=== PATIENT | male | born 1955 | race Caucasian/White ===

== ENCOUNTER 2017-04-20 05:30 | Emergency (ER) | payer OTHER ==
[~2017-04-20] VITALS: Ht 172.7 cm; Wt 90.7 kg
[2017-04-20 06:02] LABS: BASO % 0 % (0-3); EOS % 1 % (0-3); HEMATOCRIT 43.8 % (39.0-53.0); HEMOGLOBIN 14.4 g/dL (13.0-17.5); LYMPH # 0.9 x10^3/uL (1.0-4.8); LYMPH % 12 % (24-48); MEAN CORPUSCULAR HEMOGLOBIN 29 pg (25-35); MEAN CORPUSCULAR HGB CONC 33 g/dL (31-37); MEAN CORPUSCULAR VOLUME 90 fL (79-100); MONO % 11 % (0-9); NEUT % 76 % (31-73); PLATELET COUNT 184 x10^3/uL (140-400); RED BLOOD COUNT 4.88 x10^6/uL (4.30-5.70); RED CELL DISTRIBUTION WIDTH 14.1 % (11.5-14.5); WHITE BLOOD COUNT 7.6 x10^3/uL (4.0-11.0)
[2017-04-20 06:12] LABS: BILIRUBIN,URINE NEGATIVE (NEG); GLUCOSE,URINE NEGATIVE (NEG); NITRITE,URINE NEGATIVE (NEG); PROTEIN,URINE NEGATIVE (NEG-TRACE); UROBILINOGEN,URINE 0.2 mg/dL (0.2 mg/dL)
[2017-04-20 06:13] LABS: CALCIUM 8.7 mg/dL (8.5-10.1); CREATININE 1.1 mg/dL (0.7-1.3); GFR 68.1; POTASSIUM 3.8 mmol/L (3.5-5.1)
--- NOTE | 2017-04-20 06:25 | PHYS DOC ---
Past Medical History Past Medical History: Depression, High Cholesterol, Hypertension, Kidney Stone Past Surgical History: Appendectomy, Other Additional Past Surgical Histo: STENT IN KIDNEY, BIALT CATARACT Alcohol Use: Rarely Drug Use: None Adult General Chief Complaint Chief Complaint: ABDOMINAL PAIN HPI HPI Patient is a 62 year old male who presents with right flank and abdominal pain. He's had this pain intermittently over the last month, today's episode started at 1 AM and did not resolve in 2 hours like previous pain and. Patient feels similar to when he had a kidney stone 10 years ago that required lithotripsy and multiple surgeries due to the size. That time he was told he had additional stones in his kidney that they did not think would pass. He denies any vomiting but reports nausea when the pain occurs. He did not attempt any pain relieving medication. At this time his pain is well controlled as it resolved while in the ER. Review of Systems Review of Systems Constitutional: Denies fever or chills [] Eyes: Denies eye pain [] HENT: Denies nasal congestion or sore throat [] Respiratory: Denies cough or shortness of breath [] Cardiovascular: Denies chest pain GI: Per history of present illness : Denies dysuria or hematuria [] Musculoskeletal: Denies back pain Integument: Denies rash Neurologic: Denies headache, focal weakness or sensory changes [] Current Medications Current Medications Current Medications Medications (Trade) Dose Ordered Sig/Sarkis Start Time Stop Time Status Last Admin Dose Admin Sodium Chloride 1,000 ml @ 1,000 mls/hr 1X ONCE 04/20/17 06:30 04/20/17 07:29 DC 04/20/17 05:50 1,000 MLS/HR Allergies Allergies Allergies Coded Allergies Type Severity Reaction Last Updated Verified Penicillins Allergy Intermediate 04/20/17 Yes Physical Exam Physical Exam Constitutional: Well developed, well nourished HENT: Normocephalic, atraumatic, bilateral external ears normal, oropharynx moist Eyes: PERRLA, EOMI, conjunctiva normal, no discharge. Neck: Normal range of motion, supple, no stridor. Cardiovascular:Heart rate regular with regular rhythm Lungs & Thorax: Bilateral breath sounds clear to auscultation, no wheeze, crackles or rhonchi appreciated Abdomen: Soft, nontender, nondistended, no guarding, no peritoneal signs Skin: Warm, dry Back: No tenderness to palpation or percussion Extremities: No tenderness, no cyanosis, no edema. [] Neurologic: Alert and oriented X 3, normal motor function, normal sensory function, no focal deficits noted. [] Current Patient Data Vital Signs Vital Signs Date Time Temp Pulse Resp B/P (MAP) Pulse Ox O2 Delivery O2 Flow Rate FiO2 04/20/17 07:28 75 19 153/82 (105) 95 Room Air 04/20/17 05:53 98.9 98.9 Lab Values Laboratory Tests Test 04/20/17 05:33 04/20/17 05:48 Urine Collection Type Unknown Urine Color Yellow Urine Clarity Clear Urine pH 6.0 Urine Specific [place] 1.015 Urine Protein Negative mg/dL (NEG-TRACE) Urine Glucose (UA) Negative mg/dL (NEG) Urine Ketones (Stick) Negative mg/dL (NEG) Urine Blood Large (NEG) Urine Nitrite Negative (NEG) Urine Bilirubin Negative (NEG) Urine Urobilinogen Dipstick 0.2 mg/dL (0.2 mg/dL) Urine Leukocyte Esterase Negative (NEG) Urine RBC 20-40 /HPF (0-2) Urine WBC Occ /HPF (0-4) Urine Bacteria 0 /HPF (0-FEW) Urine Hyaline Casts Few /HPF Urine Mucus Marked /LPF White Blood Count 7.6 x10^3/uL (4.0-11.0) Red Blood Count 4.88 x10^6/uL (4.30-5.70) Hemoglobin 14.4 g/dL (13.0-17.5) Hematocrit 43.8 % (39.0-53.0) Mean Corpuscular Volume 90 fL (79-100) Mean Corpuscular Hemoglobin 29 pg (25-35) Mean Corpuscular Hemoglobin Concent 33 g/dL (31-37) Red Cell Distribution Width 14.1 % (11.5-14.5) Platelet Count 184 x10^3/uL (140-400) Neutrophils (%) (Auto) 76 % (31-73) H Lymphocytes (%) (Auto) 12 % (24-48) L Monocytes (%) (Auto) 11 % (0-9) H Eosinophils (%) (Auto) 1 % (0-3) Basophils (%) (Auto) 0 % (0-3) Neutrophils # (Auto) 5.7 x10^3uL (1.8-7.7) Lymphocytes # (Auto) 0.9 x10^3/uL (1.0-4.8) L Monocytes # (Auto) 0.8 x10^3/uL (0.0-1.1) Eosinophils # (Auto) 0.1 x10^3/uL (0.0-0.7) Basophils # (Auto) 0.0 x10^3/uL (0.0-0.2) Sodium Level 140 mmol/L (136-145) Potassium Level 3.8 mmol/L (3.5-5.1) Chloride Level 104 mmol/L (98-107) Carbon Dioxide Level 29 mmol/L (21-32) Anion Gap 7 (6-14) Blood Urea Nitrogen 16 mg/dL (8-26) Creatinine 1.1 mg/dL (0.7-1.3) Estimated GFR (Cockcroft-Gault) 68.1 Glucose Level 117 mg/dL (70-99) H Calcium Level 8.7 mg/dL (8.5-10.1) Laboratory Tests 04/20/17 05:48 Laboratory Tests 04/20/17 05:48 EKG EKG [] Radiology/Procedures Radiology/Procedures CT abdomen and pelvis: IMPRESSION: 1. Obstructing calculus in the mid right ureter. 2. Small right intrarenal calculus. 3. Possible tiny gallbladder calculi. 4. Probable small hepatic cysts. 5. Mild prostatic enlargement. Course & Med Decision Making Course & Med Decision Making Pertinent Labs and Imaging studies reviewed. (See chart for details) Patient received IV fluids. He was not in pain at the time of my evaluation so pain medication not indicated. Due to his ongoing intermittent pain, CT was performed. Pain remained well controlled. I reviewed CT and discussed with urologist, Dr. Jay Merida, at [facility]. He said pt can dc with pain meds, flomax, clinic number and schedule outpt follow-up. Strict return precautions given. Dragon Disclaimer Dragon Disclaimer This electronic medical record was generated, in whole or in part, using a voice recognition dictation system. Departure Departure Impression: Primary Impression: Kidney stone on right side Disposition: HOME, SELF-CARE Condition: IMPROVED Referrals: WESLEY LI MD (PCP) Patient Instructions: Kidney Stones Additional Instructions: Please call Dr. Jay Merida's office at [phone] Explain you have a 6mm obstructing stone and that you need close follow-up. Return if you have worsening symptoms. We have "clouded" the CT scan to [facility] for the urologists review. Do not drive or operate machinery if you have taken the pain medication. Scripts Tamsulosin Hcl (FLOMAX) 0.4 Mg Cap.er.24h 0.4 MG PO DAILY, #30 TAB Prov: ROYAL CRAIG MD 04/20/17 Oxycodone/Apap 5-325 (PERCOCET 5-325 MG TABLET) 1 Each Tablet 1-2 TAB PO Q4-6HRS Y for PAIN, #20 TAB Prov: ROYAL CRAIG MD 04/20/17 ROYAL CRAIG MD Apr 20, 2017 06:25
[2017-04-20 06:29] LABS: BACTERIA,URINE 0 /HPF (0-FEW); RBC,URINE 20-40 /HPF (0-2); WBC,URINE OCC /HPF (0-4)
[2017-04-20] MEDS ORDERED: IV NORMAL SALINE 1000ML BAG 1,000 ML IV ONE (06:30)
[2017-04-20 07:28] VITALS: BP 153/82
--- NOTE | 2017-04-20 07:29 | RAD ---
CT of the abdomen and pelvis without contrast, 04/20/2017: History: Pain, previous kidney stone Noncontrast scans were obtained utilizing the renal stone protocol. On the right there is a single small intrarenal calculus. There is streaky right perinephric edema. The right renal collecting system and proximal right ureter are mildly dilated. There is a 6 mm calculus in the proximal to mid right ureter at the L4-5 level. The right ureter distal to this level is not dilated. The partially filled urinary bladder is unremarkable. No left renal calculus is seen. There is minimal streaky increased density in the left perinephric fat compatible with scarring or nonspecific edema. The left renal collecting system and ureter are not dilated. No left ureteral calculus is present. There are 2 small low-density lesions in the liver, the largest of these lies posteriorly in the right lobe. It is best defined on the coronal images and demonstrates a low internal CT number compatible with a cyst. A smaller lesion in the left lobe is too small to definitively characterize, but is likely a cyst. There is a tiny amount of radiopaque material within the dependent aspect of the gallbladder neck compatible with tiny calculi or sludge. The gallbladder shows no evidence of inflammation. The pancreas is unremarkable. The spleen is of normal size. There is moderate aortoiliac calcific plaquing. No abdominal or pelvic adenopathy is seen. The prostate gland is slightly enlarged measuring 5.2 cm in width. The bowel loops are not dilated. Surgical clips are present in the pericecal region suggesting a previous appendectomy. No free fluid or free air is evident in the abdomen or pelvis. IMPRESSION: 1. Obstructing calculus in the mid right ureter. 2. Small right intrarenal calculus. 3. Possible tiny gallbladder calculi. 4. Probable small hepatic cysts. 5. Mild prostatic enlargement. PQRS Compliance Statement: One or more of the following individualized dose reduction techniques were utilized for this examination: 1. Automated exposure control 2. Adjustment of the mA and/or kV according to patient size 3. Use of iterative reconstruction technique
[2017-04-20] MEDS ORDERED: OXYC-323 PO (08:25)
[2017-04-20] MEDS ORDERED: TAMS0.4C97 PO (08:25)
== END 2017-04-20 08:43 | disposition home or self-care (01) ==
LOC: ER 05:30
DX: N20.0 Calculus of kidney (principal); E78.00 Pure hypercholesterolemia, unspecified; I10 Essential (primary) hypertension; Z88.0 Allergy status to penicillin; Z87.442 Personal history of urinary calculi
CPT/HCPCS: 36415; 74176; 80048; 81001; 85025; 96360; 99285; J7030

== ENCOUNTER 2019-09-29 13:27 | Inpatient (IN) | payer OTHER ==
[~2019-09-29] VITALS: Ht 172.7 cm; Wt 87.5 kg
[~2019-09-29 13:27] MED LIST: OXYC1TAB15 PO; TAMS0.4C97 PO
--- NOTE | 2019-09-29 15:10 | PHYS DOC ---
Past Medical History Past Medical History: Depression, High Cholesterol, Hypertension, Kidney Stone Past Surgical History: Appendectomy, Other Additional Past Surgical Histo: STENT IN KIDNEY, BIALT CATARACT Smoking Status: Never Smoker Alcohol Use: Rarely Drug Use: None Adult General Chief Complaint Chief Complaint: CHEST PAIN [facility] HPI Patient is a 64 year old male who presents with midsternal chest pain that started at 930 this morning. The patient also states that he has been having bilateral blurry vision in his eyes. At baseline he says he is had clots in his eyes before and has part of his vision obscured. The patient's states that she feels that he is a little slower to respond and speak the normal is having difficulty getting his words out. The patient states that nothing makes the chest pain better or worse. 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 He rates his pain is 1 out of 10 in severity. Review of Systems Review of Systems Constitutional: Denies fever or chills [] Eyes: Reports change in visual acuity, denies redness, or eye pain [] HENT: Denies nasal congestion or sore throat [] Respiratory: Denies cough or shortness of breath [] Cardiovascular: No additional information not addressed in HPI [] GI: Denies abdominal pain, nausea, vomiting, bloody stools or diarrhea [] : Denies dysuria or hematuria [] Musculoskeletal: Denies back pain or joint pain [] Integument: Denies rash or skin lesions [] Neurologic: Denies headache, focal weakness or sensory changes [] Endocrine: Denies polyuria or polydipsia [] Complete systems were reviewed and found to be within normal limits, except as documented in this note. Current Medications Current Medications Current Medications Medications (Trade) Dose Ordered Sig/Sarkis Start Time Stop Time Status Last Admin Dose Admin Aspirin (Children'S Aspirin) 324 mg 1X ONCE 09/29/19 15:15 09/29/19 15:16 DC 09/29/19 15:39 324 MG Info (CONTRAST GIVEN -- Rx MONITORING) 1 each PRN DAILY PRN 09/29/19 15:15 10/01/19 15:14 Iohexol (Omnipaque 350 Mg/ml) 75 ml 1X ONCE 09/29/19 15:15 09/29/19 15:16 DC 09/29/19 15:35 75 ML Sodium Chloride 1,000 ml @ 1,000 mls/hr 1X ONCE 09/29/19 15:15 09/29/19 16:14 DC 09/29/19 15:40 1,000 MLS/HR Allergies Allergies Allergies Coded Allergies Type Severity Reaction Last Updated Verified Penicillins Allergy Intermediate 04/20/17 Yes Physical Exam Physical Exam Constitutional: Well developed, well nourished, no acute distress, non-toxic appearance. [] HENT: Normocephalic, atraumatic, bilateral external ears normal, oropharynx mar[address] st, no oral exudates, nose normal. [] Eyes: PERRLA, EOMI, conjunctiva normal, no discharge. [] Neck: Normal range of motion, no tenderness, supple, no stridor. [] Cardiovascular:Heart rate regular rhythm, no murmur [] Lungs & Thorax: Bilateral breath sounds clear to auscultation [] Abdomen: Bowel sounds normal, soft, no tenderness, no masses, no pulsatile masses. [] Skin: Warm, dry, no erythema, no rash. [] Back: No tenderness, no CVA tenderness. [] Extremities: No tenderness, no cyanosis, no clubbing, ROM intact, no edema. [] Neurologic: Alert and oriented X 3, normal motor function, normal sensory function, no focal deficits noted. [] Psychologic: Affect normal, judgement normal, mood normal. [] Current Patient Data Vital Signs Vital Signs Date Time Temp Pulse Resp B/P (MAP) Pulse Ox O2 Delivery O2 Flow Rate FiO2 09/29/19 14:10 98.0 88 18 156/108 (124) 98 Room Air 98.0 Lab Values Laboratory Tests Test 09/29/19 15:10 09/29/19 16:30 White Blood Count 5.5 x10^3/uL (4.0-11.0) Red Blood Count 5.19 x10^6/uL (4.30-5.70) Hemoglobin 15.2 g/dL (13.0-17.5) Hematocrit 44.4 % (39.0-53.0) Mean Corpuscular Volume 86 fL (79-100) Mean Corpuscular Hemoglobin 29 pg (25-35) Mean Corpuscular Hemoglobin Concent 34 g/dL (31-37) Red Cell Distribution Width 14.8 % (11.5-14.5) H Platelet Count 220 x10^3/uL (140-400) Neutrophils (%) (Auto) 59 % (31-73) Lymphocytes (%) (Auto) 30 % (24-48) Monocytes (%) (Auto) 9 % (0-9) Eosinophils (%) (Auto) 1 % (0-3) Basophils (%) (Auto) 1 % (0-3) Neutrophils # (Auto) 3.3 x10^3/uL (1.8-7.7) Lymphocytes # (Auto) 1.7 x10^3/uL (1.0-4.8) Monocytes # (Auto) 0.5 x10^3/uL (0.0-1.1) Eosinophils # (Auto) 0.1 x10^3/uL (0.0-0.7) Basophils # (Auto) 0.0 x10^3/uL (0.0-0.2) Prothrombin Time 12.7 SEC (11.7-14.0) Prothrombin Time INR 1.0 (0.8-1.1) Activated Partial Thromboplast Time 32 SEC (24-38) Sodium Level 138 mmol/L (136-145) Potassium Level 4.0 mmol/L (3.5-5.1) Chloride Level 101 mmol/L (98-107) Carbon Dioxide Level 30 mmol/L (21-32) Anion Gap 7 (6-14) Blood Urea Nitrogen 12 mg/dL (8-26) Creatinine 1.0 mg/dL (0.7-1.3) Estimated GFR (Cockcroft-Gault) 75.5 BUN/Creatinine Ratio 12 (6-20) Glucose Level 95 mg/dL (70-99) Calcium Level 8.8 mg/dL (8.5-10.1) Total Bilirubin 0.5 mg/dL (0.2-1.0) Aspartate Amino Transferase (AST) 21 U/L (15-37) Alanine Aminotransferase (ALT) 33 U/L (16-63) Alkaline Phosphatase 50 U/L (46-116) Troponin I Quantitative < 0.017 ng/mL (0.000-0.055) Total Protein 7.7 g/dL (6.4-8.2) Albumin 3.9 g/dL (3.4-5.0) Albumin/Globulin Ratio 1.0 (1.0-1.7) Ethyl Alcohol Level < 10 mg/dL (0-10) Urine Collection Type Unknown Urine Color Yellow Urine Clarity Clear Urine pH 8.0 (<5.0-8.0) Urine Specific [place] >=1.030 (1.000-1.030) Urine Protein Negative mg/dL (NEG-TRACE) Urine Glucose (UA) Negative mg/dL (NEG) Urine Ketones (Stick) Negative mg/dL (NEG) Urine Blood Negative (NEG) Urine Nitrite Negative (NEG) Urine Bilirubin Negative (NEG) Urine Urobilinogen Dipstick 0.2 mg/dL (0.2 mg/dL) Urine Leukocyte Esterase Negative (NEG) Urine RBC 0 /HPF (0-2) Urine WBC Rare /HPF (0-4) Urine Squamous Epithelial Cells Few /LPF Urine Bacteria Few /HPF (0-FEW) Urine Opiates Screen Neg (NEG) Urine Methadone Screen Neg (NEG) Urine Barbiturates Neg (NEG) Urine Phencyclidine Screen Neg (NEG) Urine Amphetamine/Methamphetamine Pos (NEG) Urine Benzodiazepines Screen Neg (NEG) Urine Cocaine Screen Neg (NEG) Urine Cannabinoids Screen Pos (NEG) Urine Ethyl Alcohol Neg (NEG) Laboratory Tests 09/29/19 15:10 Laboratory Tests 09/29/19 15:10 EKG EKG [] Radiology/Procedures Radiology/Procedures [id number] [address] [id number] IMAGING REPORT Signed PATIENT: HANK EVANS RACCOUNT: [id number] : 1955 LOCATION: ER AGE: 64 SEX: M EXAM STATUS: REG ER ORD. PHYSICIAN: CHARIS ZIMMER APRN REASON: cp, blurry vision, dysarthria PROCEDURE: CT ANGIOGRAPHY HEAD AND NECK PQRS Compliance Statement: One or more of the following individualized dose reduction techniques were utilized for this examination: 1. Automated exposure control 2. Adjustment of the mA and/or kV according to patient size 3. Use of iterative reconstruction technique CT ANGIOGRAPHY HEAD AND NECK 09/29/2019 3:02 PM INDICATION: Chest pain, blurry vision and dysarthria COMPARISON: CT head 09/29/2019 TECHNIQUE: Multiple axial CT images of the head and neck were obtained after the intravenous administration of nonionic contrast. Coronal and sagittal reformats are provided. Maximum intensity projection images are provided. Stenosis calculations for CT, MR, and conventional angiography are based upon measurements of the distal ICA diameter in accordance with the NASCET methodology. Stenosis calculations for carotid ultrasound studies are derived from validated velocity criteria which are known to correlate with the NASCET methodology. FINDINGS: Ventricles, sulci and basal cisterns are normal in appearance. Velasco-white matter differentiation is preserved. There is no mass, mass effect or midline shift. Posterior fossa is normal in appearance. Sella and suprasellar cistern appear normal. Orbits are normal in appearance with exception of bilateral lens replacement. Scalp and calvaria appear intact. Paranasal sinuses are well aerated. Mastoid air cells are well aerated. Visualized portions of lungs are clear. There is a 6 mm calcified granuloma in the right upper lobe. Thyroid gland is normal in appearance. Neck soft tissues are normal in appearance. No pathologically enlarged cervical lymphadenopathy. Pharynx and larynx appear intact. There is minimal anterolisthesis of C4 on C5 and minimal retrolisthesis of C5 on C6. Vascular findings: There is a normal three-vessel aortic arch. Origins of the brachiocephalic vessels are widely patent. Right common carotid artery is normal in course and caliber. Minor calcified plaque is noted at the right carotid bifurcation. No significant stenosis of the right cervical internal carotid artery. External carotid artery is widely patent. Left common carotid artery is normal in course and caliber. Minor calcified plaque is identified at the left carotid bifurcation. No significant stenosis of the left cervical internal carotid artery. External carotid artery is widely patent. Vertebral arteries are normal in course and caliber. Right vertebral artery is dominant. Intracranial segments of internal carotid arteries are normal in course and caliber. There is mild calcified atheromatous plaque involving the cavernous segments without significant stenosis. Origins of the ophthalmic segments of the internal carotid artery appears widely patent. Middle cerebral arteries are normal in course and caliber with patent sylvian branches. Anterior cerebral arteries are normal in course and caliber. Anterior communicating artery is visualized. Basilar artery is normal in course and caliber. Superior cerebellar arteries are widely patent. Posterior cerebral arteries are normal in course and caliber. There is no aneurysm, vascular malformation or high-grade stenosis/large vessel occlusion involving [place]. Superior sagittal sinus is patent. IMPRESSION: 1. There is no evidence for acute intracranial hemorrhage. 2. There is no evidence for hemodynamically significant carotid stenosis. Minor calcified plaque is noted at the carotid bifurcations bilaterally. 3. There is no aneurysm, vascular malformation or high-grade stenosis/large vessel occlusion involving the [place]. Electronically signed by: Kenna Weems MD (09/29/2019 4:12 PM) [id number] DICTATED and SIGNED BY: KENNA WEEMS MD DATE: 09/29/19 1612 IMAGING REPORT Signed PATIENT: HANK EVANS RACCOUNT: [id number] : 1955 LOCATION: ER AGE: 64 SEX: M EXAM STATUS: REG ER ORD. PHYSICIAN: HCARIS ZIMMER APRN REASON: cp, blurry vision, dysarthria PROCEDURE: CT HEAD WO CONTRAST CT HEAD WO CONTRAST History: Chest pain, blurred vision, dysarthria Comparison: None. Technique: Noncontrast CT imaging was performed of the head. Exposure: One or more of the following individualized dose reduction techniques were utilized for this examination: 1. Automated exposure control 2. Adjustment of the mA and/or kV according to patient size 3. Use of iterative reconstruction technique. Findings: No acute extra-axial or parenchymal hemorrhage is identified. There is no significant intra-axial mass effect, midline shift, or extra-axial fluid collection. The velasco-white differentiation of the major vascular territories is preserved. The ventricles, sulci, and cisterns are within normal limits in size and configuration. The mastoid air cells and the visualized paranasal sinuses are aerated. No acute calvarial abnormality is identified. There is atherosclerotic calcification of the carotid siphons bilaterally. Impression: 1. No acute intracranial abnormality is identified. Electronically signed by: Jodi Reed MD (09/29/2019 3:37 PM) [id number] DICTATED and SIGNED BY: JODI REED MD DATE: 09/29/19 1532 [][facility] [address] [place] [address] IMAGING REPORT Signed PATIENT: HANK EVANS RACCOUNT: [id number] : 1955 LOCATION: ER AGE: 64 SEX: M EXAM STATUS: REG ER ORD. PHYSICIAN: CHARIS ZIMMER APRN REASON: cp PROCEDURE: CHEST PA & LATERAL AP and Lateral Views of the Chest 09/29/2019 3:12 PM Indication: Chest pain Comparison: None Findings: Calcified granuloma noted in the right upper lobe. The There is no focal consolidation or infiltrate identified. The cardiomediastinal silhouette is within normal limits. There is no evidence of pneumothorax or pleural effusion. No acute osseous abnormalities are identified. Impression: No evidence of acute cardiopulmonary process. Electronically signed by: Jairo Gallegos MD (09/29/2019 3:23 PM) [id number] DICTATED and SIGNED BY: JAIRO GALLEGOS MD DATE: 09/29/19 1523 Course & Med Decision Making Course & Med Decision Making Pertinent Labs and Imaging studies reviewed. (See chart for details) Will get EKG, labs, chest x-ray, CT head, and CTA due to symptoms the patient is having. Labs are unremarkable for acute changes, discussed with Dr. Castaneda who agrees admit patient to the hospital. Will consult neurology and cardiology. Dragon Disclaimer Dragon Disclaimer This electronic medical record was generated, in whole or in part, using a voice recognition dictation system. Departure Departure Impression: Primary Impression: Chest pain Additional Impressions: Dysarthria Blurry vision, bilateral Disposition: ADMITTED INPATIENT Admitting Physician: RAJAN Condition: STABLE Referrals: CHRISTOPHER MORAES MD (PCP) The HEART Score for CP Pts HEART Score for Chest Pain: HEART Score for Chest Pain Response (Comments) Value History Moderately Suspicious 1 ECG Normal 0 Age >45 - < 65 1 Risk Factors >3 Risk Factors or Hx CAD 2 Troponin < Normal Limit 0 Total 4 Risk Factors: Risk Factors: DM, Current or recent (<one month) smoker, HTN, HLP, family history of CAD, obesity. Risk Scores: Score 0 - 3: 2.5% MACE over next 6 weeks - Discharge Home Score 4 - 6: 20.3% MACE over next 6 weeks - Admit for Clinical Observation Score 7 - 10: 72.7% MACE over next 6 weeks - Early Invasive Strategies NIHSS Stroke Scale NIH Stroke Scale: NIH Stroke Scale Response (Comments) Value Level of Consciousness: 0 Alert/Responsive 0 LOC Questions: 0 Answers both correctly 0 LOC Commands: 0 Performs both tasks 0 Best Gaze: 1 Partial gaze palsy 1 Visual: 1 Partial hemianopia 1 Facial Palsy: 0 Normal, symmetrical 0 Motor - Left Arm 0 No drift 0 Motor - Right Arm 0 No drift 0 Motor - Left Leg 0 No drift 0 Motor: Right Leg 0 No drift 0 Limb Ataxia: 0 Absent 0 Sensory: 0 No loss 0 Best Language: 0 Normal 0 Dysathria: 1 Mild to moderate 1 Extinction and Inattention: 0 Normal 0 Total 3 Problem Qualifiers Primary Impression: Chest pain Chest pain type: unspecified Qualified Codes: R07.9 - Chest pain, unspecified CHARIS ZIMMER APRN Sep 29, 2019 15:10
[2019-09-29] MEDS ORDERED: IV NORMAL SALINE 1000ML BAG 1,000 ML IV ONE (15:15)
[2019-09-29] MEDS ORDERED: CONTRAST GIVEN. MC PRN (15:15)
[2019-09-29] MEDS ORDERED: IOHEXOL 350 MG/ML 100 ML VIAL. IV ONE (15:15)
[2019-09-29] MEDS ORDERED: ASPIRIN CHEWABLE 81 MG TABLET. PO ONE (15:15)
[2019-09-29 15:18] LABS: BASO % 1 % (0-3); EOS # 0.1 x10^3/uL (0.0-0.7); EOS % 1 % (0-3); HEMATOCRIT 44.4 % (39.0-53.0); HEMOGLOBIN 15.2 g/dL (13.0-17.5); LYMPH # 1.7 x10^3/uL (1.0-4.8); LYMPH % 30 % (24-48); MEAN CORPUSCULAR HEMOGLOBIN 29 pg (25-35); MEAN CORPUSCULAR HGB CONC 34 g/dL (31-37); MEAN CORPUSCULAR VOLUME 86 fL (79-100); MONO # 0.5 x10^3/uL (0.0-1.1); MONO % 9 % (0-9); NEUT # 3.3 x10^3/uL (1.8-7.7); NEUT % 59 % (31-73); PLATELET COUNT 220 x10^3/uL (140-400); RED BLOOD COUNT 5.19 x10^6/uL (4.30-5.70); RED CELL DISTRIBUTION WIDTH 14.8 % (11.5-14.5); WHITE BLOOD COUNT 5.5 x10^3/uL (4.0-11.0)
--- NOTE | 2019-09-29 15:26 | RAD ---
AP and Lateral Views of the Chest 09/29/2019 3:12 PM Indication: Chest pain Comparison: None Findings: Calcified granuloma noted in the right upper lobe. The There is no focal consolidation or infiltrate identified. The cardiomediastinal silhouette is within normal limits. There is no evidence of pneumothorax or pleural effusion. No acute osseous abnormalities are identified. Impression: No evidence of acute cardiopulmonary process. Electronically signed by: Jairo Chen MD (09/29/2019 3:23 PM) [id number]
[2019-09-29 15:38] LABS: PROTHROMBIN TIME PATIENT 12.7 SEC (11.7-14.0)
--- NOTE | 2019-09-29 15:40 | RAD ---
CT HEAD WO CONTRAST History: Chest pain, blurred vision, dysarthria Comparison: None. Technique: Noncontrast CT imaging was performed of the head. Exposure: One or more of the following individualized dose reduction techniques were utilized for this examination: 1. Automated exposure control 2. Adjustment of the mA and/or kV according to patient size 3. Use of iterative reconstruction technique. Findings: No acute extra-axial or parenchymal hemorrhage is identified. There is no significant intra-axial mass effect, midline shift, or extra-axial fluid collection. The dale-white differentiation of the major vascular territories is preserved. The ventricles, sulci, and cisterns are within normal limits in size and configuration. The mastoid air cells and the visualized paranasal sinuses are aerated. No acute calvarial abnormality is identified. There is atherosclerotic calcification of the carotid siphons bilaterally. Impression: 1. No acute intracranial abnormality is identified. Electronically signed by: Micheal Hernandez MD (09/29/2019 3:37 PM) [id number]
[2019-09-29 15:42] LABS: CALCIUM 8.8 mg/dL (8.5-10.1); GFR 75.5
[2019-09-29 15:51] LABS: ALBUMIN 3.9 g/dL (3.4-5.0); TOTAL BILIRUBIN 0.5 mg/dL (0.2-1.0); TOTAL PROTEIN 7.7 g/dL (6.4-8.2)
--- NOTE | 2019-09-29 16:15 | RAD ---
PQRS Compliance Statement: One or more of the following individualized dose reduction techniques were utilized for this examination: 1. Automated exposure control 2. Adjustment of the mA and/or kV according to patient size 3. Use of iterative reconstruction technique CT ANGIOGRAPHY HEAD AND NECK 09/29/2019 3:02 PM INDICATION: Chest pain, blurry vision and dysarthria COMPARISON: CT head 09/29/2019 TECHNIQUE: Multiple axial CT images of the head and neck were obtained after the intravenous administration of nonionic contrast. Coronal and sagittal reformats are provided. Maximum intensity projection images are provided. Stenosis calculations for CT, MR, and conventional angiography are based upon measurements of the distal ICA diameter in accordance with the NASCET methodology. Stenosis calculations for carotid ultrasound studies are derived from validated velocity criteria which are known to correlate with the NASCET methodology. FINDINGS: Ventricles, sulci and basal cisterns are normal in appearance. Velasco-white matter differentiation is preserved. There is no mass, mass effect or midline shift. Posterior fossa is normal in appearance. Sella and suprasellar cistern appear normal. Orbits are normal in appearance with exception of bilateral lens replacement. Scalp and calvaria appear intact. Paranasal sinuses are well aerated. Mastoid air cells are well aerated. Visualized portions of lungs are clear. There is a 6 mm calcified granuloma in the right upper lobe. Thyroid gland is normal in appearance. Neck soft tissues are normal in appearance. No pathologically enlarged cervical lymphadenopathy. Pharynx and larynx appear intact. There is minimal anterolisthesis of C4 on C5 and minimal retrolisthesis of C5 on C6. Vascular findings: There is a normal three-vessel aortic arch. Origins of the brachiocephalic vessels are widely patent. Right common carotid artery is normal in course and caliber. Minor calcified plaque is noted at the right carotid bifurcation. No significant stenosis of the right cervical internal carotid artery. External carotid artery is widely patent. Left common carotid artery is normal in course and caliber. Minor calcified plaque is identified at the left carotid bifurcation. No significant stenosis of the left cervical internal carotid artery. External carotid artery is widely patent. Vertebral arteries are normal in course and caliber. Right vertebral artery is dominant. Intracranial segments of internal carotid arteries are normal in course and caliber. There is mild calcified atheromatous plaque involving the cavernous segments without significant stenosis. Origins of the ophthalmic segments of the internal carotid artery appears widely patent. Middle cerebral arteries are normal in course and caliber with patent sylvian branches. Anterior cerebral arteries are normal in course and caliber. Anterior communicating artery is visualized. Basilar artery is normal in course and caliber. Superior cerebellar arteries are widely patent. Posterior cerebral arteries are normal in course and caliber. There is no aneurysm, vascular malformation or high-grade stenosis/large vessel occlusion involving unga of [place]. Superior sagittal sinus is patent. IMPRESSION: 1. There is no evidence for acute intracranial hemorrhage. 2. There is no evidence for hemodynamically significant carotid stenosis. Minor calcified plaque is noted at the carotid bifurcations bilaterally. 3. There is no aneurysm, vascular malformation or high-grade stenosis/large vessel occlusion involving the unga of [place]. Electronically signed by: Claudia Irene MD (09/29/2019 4:12 PM) [id number]
[2019-09-29 16:36] LABS: BILIRUBIN,URINE NEGATIVE (NEG); CLARITY,URINE CLEAR; COLOR,URINE YELLOW; NITRITE,URINE NEGATIVE (NEG); PROTEIN,URINE NEGATIVE (NEG-TRACE); UROBILINOGEN,URINE 0.2 mg/dL (0.2 mg/dL)
[2019-09-29 16:43] LABS: BARBITURATES NEG (NEG); BENZODIAZEPINES NEG (NEG); CANNABINOIDS POS (NEG); COCAINE NEG (NEG); METHADONE NEG (NEG); OPIATES NEG (NEG); PHENCYCLIDINE NEG (NEG)
[2019-09-29 16:44] LABS: AMPHETAMINE/METHAMPHETAMINE POS (NEG); BACTERIA,URINE FEW /HPF (0-FEW); RBC,URINE 0 /HPF (0-2); SQUAMOUS EPITHELIAL CELL,UR FEW /LPF; WBC,URINE RARE /HPF (0-4)
[2019-09-29] MEDS ORDERED: ACETAMINOPHEN 325 MG TABLET. PO PRN (17:30)
[2019-09-29] MEDS ORDERED: ONDANSETRON PF 4 MG/2 ML VIAL. IV PRN ×2 (17:30)
[2019-09-29] MEDS ORDERED: oxyCODONE/APAP 5/325 1 TAB TABLET PO PRN (17:30)
[2019-09-29] MEDS ORDERED: LORazepam 0.5 MG TABLET PO PRN (17:30)
[2019-09-29] MEDS ORDERED: ZOLPIDEM 5 MG TABLET. PO PRN (17:30)
[2019-09-29] MEDS ORDERED: DOCUSATE SODIUM 100 MG CAPSULE. PO PRN (17:30)
[2019-09-29] MEDS ORDERED: guaiFENesin ORAL 200 MG/10 ML LIQUID. PO PRN (17:30)
--- NOTE | 2019-09-29 18:33 | PDOC1 ---
History and Physical Date of Admission Date of Admission 09/29/2019 Identification/Chief Complaint Chief Complaint I felt dizzy History of Present Illness History of Present Illness Patient is a 64-year-old gentleman with past medical history of hypertension dyslipidemia anxiety and OCD who is on prescription Adderall who was at his workplace when he started developing chest discomfort that he describes as a pressure-like sensation. Patient also subsequently felt lightheaded and have blurred vision. Of note is that the patient has had cataract surgery and has had defects in his vision for quite some time. 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 The patient has some dysarthria at baseline but according to the ER physician did seem to be more rounds in their opinion. The patient has a history of a greater than [id number] history of smoking he quit 9 years ago. The patient denies neurological deficits he denies odynophagia or dysphagia. No recent respiratory tract infections no neck pain no stiffness the patient denies any fever chills no cough or sputum production. No sick contacts have been reported the patient denies pleurisy. The patient denies paroxysmal nocturnal dyspnea no orthopnea he does not present nausea vomiting or diarrhea either. The patient left his workplace and went outside where HR prompted him to come to the emergency department for evaluation. At the time of my note the patient symptoms have abated and we have been asked to admit the patient for a cardiac rule out Past Medical History Cardiovascular: HTN, Hyperlipidemia Psych: Anxiety Current Problem List Problem List Problems Medical Problems: (1) Blurry vision, bilateral Status: Acute (2) Chest pain Status: Acute (3) Dysarthria Status: Acute Current Medications Current Medications Current Medications Medications (Trade) Dose Ordered Sig/Sarkis Start Time Stop Time Status Last Admin Dose Admin Acetaminophen (Tylenol) 650 mg PRN Q4HRS PRN 09/29/19 17:30 Aspirin (Children'S Aspirin) 324 mg 1X ONCE 09/29/19 15:15 09/29/19 15:16 DC 09/29/19 15:39 324 MG Docusate Sodium (Colace) 100 mg PRN BID PRN 09/29/19 17:30 Enoxaparin Sodium (Lovenox 40mg Syringe) 40 mg DAILY 09/30/19 09:00 Guaifenesin (Robitussin) 200 mg PRN Q4HRS PRN 09/29/19 17:30 Info (CONTRAST GIVEN -- Rx MONITORING) 1 each PRN DAILY PRN 09/29/19 15:15 10/01/19 15:14 Iohexol (Omnipaque 350 Mg/ml) 75 ml 1X ONCE 09/29/19 15:15 09/29/19 15:16 DC 09/29/19 15:35 75 ML Lorazepam (Ativan) 0.5 mg PRN Q4HRS PRN 09/29/19 17:30 Ondansetron HCl (Zofran) 4 mg PRN Q4HRS PRN 09/29/19 17:30 Oxycodone/ Acetaminophen (Percocet 5/325) 1 tab PRN Q6HRS PRN 09/29/19 17:30 Sodium Chloride 1,000 ml @ 1,000 mls/hr 1X ONCE 09/29/19 15:15 09/29/19 16:14 DC 09/29/19 15:40 1,000 MLS/HR Tamsulosin HCl (Flomax) 0.4 mg DAILY 09/30/19 09:00 Zolpidem Tartrate (Ambien) 5 mg PRN QHS PRN 09/29/19 17:30 Allergies Allergies Allergies Coded Allergies Type Severity Reaction Last Updated Verified Penicillins Allergy Intermediate 04/20/17 Yes ROS Review of System CONSTITUTIONAL: No fever or chills EYES: No recent changes SKIN: No rash or itching CARDIOVASCULAR: No chest pain, syncope, palpitations, or edema RESPIRATORY: No SOB or cough GASTROINTESTINAL: No nausea, vomiting or abdominal pain NEUROLOGICAL: No headaches or weakness ENDOCRINE: No cold or heat intolerance GENITOURINARY: No urgency or frequency of urination MUSCULOSKELETAL: No back pain or joint pain LYMPHATICS: No enlarged lymph nodes PSYCHIATRIC: No anxiety or depression Physical Exam Physical Exam GEN.: No apparent distress. Alert and oriented. HEENT: Head is normocephalic, atraumatic NECK: Supple. LUNGS: Clear to auscultation. HEART: RRR, S1, S2 present. Peripheral pulses intact ABDOMEN: Soft, nontender. Positive bowel sounds. EXTREMITIES: Without any cyanosis. NEUROLOGIC: Normal speech, normal tone PSYCHIATRIC: Normal affect, normal mood. SKIN: No ulcerations Vitals Vitals Vital Signs Date Time Temp Pulse Resp B/P (MAP) Pulse Ox O2 Delivery O2 Flow Rate FiO2 09/29/19 14:10 98.0 88 18 156/108 (124) 98 Room Air 98.0 Labs Labs Laboratory Tests Test 09/29/19 15:10 09/29/19 16:30 White Blood Count 5.5 x10^3/uL (4.0-11.0) Red Blood Count 5.19 x10^6/uL (4.30-5.70) Hemoglobin 15.2 g/dL (13.0-17.5) Hematocrit 44.4 % (39.0-53.0) Mean Corpuscular Volume 86 fL (79-100) Mean Corpuscular Hemoglobin 29 pg (25-35) Mean Corpuscular Hemoglobin Concent 34 g/dL (31-37) Red Cell Distribution Width 14.8 % (11.5-14.5) Platelet Count 220 x10^3/uL (140-400) Neutrophils (%) (Auto) 59 % (31-73) Lymphocytes (%) (Auto) 30 % (24-48) Monocytes (%) (Auto) 9 % (0-9) Eosinophils (%) (Auto) 1 % (0-3) Basophils (%) (Auto) 1 % (0-3) Neutrophils # (Auto) 3.3 x10^3/uL (1.8-7.7) Lymphocytes # (Auto) 1.7 x10^3/uL (1.0-4.8) Monocytes # (Auto) 0.5 x10^3/uL (0.0-1.1) Eosinophils # (Auto) 0.1 x10^3/uL (0.0-0.7) Basophils # (Auto) 0.0 x10^3/uL (0.0-0.2) Prothrombin Time 12.7 SEC (11.7-14.0) Prothromb Time International Ratio 1.0 (0.8-1.1) Activated Partial Thromboplast Time 32 SEC (24-38) Sodium Level 138 mmol/L (136-145) Potassium Level 4.0 mmol/L (3.5-5.1) Chloride Level 101 mmol/L (98-107) Carbon Dioxide Level 30 mmol/L (21-32) Anion Gap 7 (6-14) Blood Urea Nitrogen 12 mg/dL (8-26) Creatinine 1.0 mg/dL (0.7-1.3) Estimated GFR (Cockcroft-Gault) 75.5 BUN/Creatinine Ratio 12 (6-20) Glucose Level 95 mg/dL (70-99) Calcium Level 8.8 mg/dL (8.5-10.1) Total Bilirubin 0.5 mg/dL (0.2-1.0) Aspartate Amino Transf (AST/SGOT) 21 U/L (15-37) Alanine Aminotransferase (ALT/SGPT) 33 U/L (16-63) Alkaline Phosphatase 50 U/L (46-116) Troponin I Quantitative < 0.017 ng/mL (0.000-0.055) Total Protein 7.7 g/dL (6.4-8.2) Albumin 3.9 g/dL (3.4-5.0) Albumin/Globulin Ratio 1.0 (1.0-1.7) Ethyl Alcohol Level < 10 mg/dL (0-10) Urine Collection Type Unknown Urine Color Yellow Urine Clarity Clear Urine pH 8.0 (<5.0-8.0) Urine Specific [place] >=1.030 (1.000-1.030) Urine Protein Negative mg/dL (NEG-TRACE) Urine Glucose (UA) Negative mg/dL (NEG) Urine Ketones (Stick) Negative mg/dL (NEG) Urine Blood Negative (NEG) Urine Nitrite Negative (NEG) Urine Bilirubin Negative (NEG) Urine Urobilinogen Dipstick 0.2 mg/dL (0.2 mg/dL) Urine Leukocyte Esterase Negative (NEG) Urine RBC 0 /HPF (0-2) Urine WBC Rare /HPF (0-4) Urine Squamous Epithelial Cells Few /LPF Urine Bacteria Few /HPF (0-FEW) Urine Opiates Screen Neg (NEG) Urine Methadone Screen Neg (NEG) Urine Barbiturates Neg (NEG) Urine Phencyclidine Screen Neg (NEG) Urine Amphetamine/Methamphetamine Pos (NEG) Urine Benzodiazepines Screen Neg (NEG) Urine Cocaine Screen Neg (NEG) Urine Cannabinoids Screen Pos (NEG) Urine Ethyl Alcohol Neg (NEG) Laboratory Tests Test 09/29/19 15:10 09/29/19 16:30 White Blood Count 5.5 x10^3/uL (4.0-11.0) Red Blood Count 5.19 x10^6/uL (4.30-5.70) Hemoglobin 15.2 g/dL (13.0-17.5) Hematocrit 44.4 % (39.0-53.0) Mean Corpuscular Volume 86 fL (79-100) Mean Corpuscular Hemoglobin 29 pg (25-35) Mean Corpuscular Hemoglobin Concent 34 g/dL (31-37) Red Cell Distribution Width 14.8 % (11.5-14.5) Platelet Count 220 x10^3/uL (140-400) Neutrophils (%) (Auto) 59 % (31-73) Lymphocytes (%) (Auto) 30 % (24-48) Monocytes (%) (Auto) 9 % (0-9) Eosinophils (%) (Auto) 1 % (0-3) Basophils (%) (Auto) 1 % (0-3) Neutrophils # (Auto) 3.3 x10^3/uL (1.8-7.7) Lymphocytes # (Auto) 1.7 x10^3/uL (1.0-4.8) Monocytes # (Auto) 0.5 x10^3/uL (0.0-1.1) Eosinophils # (Auto) 0.1 x10^3/uL (0.0-0.7) Basophils # (Auto) 0.0 x10^3/uL (0.0-0.2) Prothrombin Time 12.7 SEC (11.7-14.0) Prothromb Time International Ratio 1.0 (0.8-1.1) Activated Partial Thromboplast Time 32 SEC (24-38) Sodium Level 138 mmol/L (136-145) Potassium Level 4.0 mmol/L (3.5-5.1) Chloride Level 101 mmol/L (98-107) Carbon Dioxide Level 30 mmol/L (21-32) Anion Gap 7 (6-14) Blood Urea Nitrogen 12 mg/dL (8-26) Creatinine 1.0 mg/dL (0.7-1.3) Estimated GFR (Cockcroft-Gault) 75.5 BUN/Creatinine Ratio 12 (6-20) Glucose Level 95 mg/dL (70-99) Calcium Level 8.8 mg/dL (8.5-10.1) Total Bilirubin 0.5 mg/dL (0.2-1.0) Aspartate Amino Transf (AST/SGOT) 21 U/L (15-37) Alanine Aminotransferase (ALT/SGPT) 33 U/L (16-63) Alkaline Phosphatase 50 U/L (46-116) Troponin I Quantitative < 0.017 ng/mL (0.000-0.055) Total Protein 7.7 g/dL (6.4-8.2) Albumin 3.9 g/dL (3.4-5.0) Albumin/Globulin Ratio 1.0 (1.0-1.7) Ethyl Alcohol Level < 10 mg/dL (0-10) Urine Collection Type Unknown Urine Color Yellow Urine Clarity Clear Urine pH 8.0 (<5.0-8.0) Urine Specific [place] >=1.030 (1.000-1.030) Urine Protein Negative mg/dL (NEG-TRACE) Urine Glucose (UA) Negative mg/dL (NEG) Urine Ketones (Stick) Negative mg/dL (NEG) Urine Blood Negative (NEG) Urine Nitrite Negative (NEG) Urine Bilirubin Negative (NEG) Urine Urobilinogen Dipstick 0.2 mg/dL (0.2 mg/dL) Urine Leukocyte Esterase Negative (NEG) Urine RBC 0 /HPF (0-2) Urine WBC Rare /HPF (0-4) Urine Squamous Epithelial Cells Few /LPF Urine Bacteria Few /HPF (0-FEW) Urine Opiates Screen Neg (NEG) Urine Methadone Screen Neg (NEG) Urine Barbiturates Neg (NEG) Urine Phencyclidine Screen Neg (NEG) Urine Amphetamine/Methamphetamine Pos (NEG) Urine Benzodiazepines Screen Neg (NEG) Urine Cocaine Screen Neg (NEG) Urine Cannabinoids Screen Pos (NEG) Urine Ethyl Alcohol Neg (NEG) VTE Prophylaxis Ordered VTE Prophylaxis Devices: No VTE Pharmacological Prophylaxi: Yes Assessment/Plan Assessment/Plan Atypical chest pain Dyslipidemia Essential hypertension History of OCD and ADHD on Adderall therapy History of anxiety disorder Plan Admit patient for cardiac rule out with serial troponins Resume home medications once available for review Cardiology consultation has been requested by the ER Further recommendations will be based on the clinical course WELSEY CLARK MD Sep 29, 2019 18:33
[2019-09-29 20:00] VITALS: BP 139/72
[2019-09-29 20:13] VITALS: BP 181/100
--- NOTE | 2019-09-29 20:23 | EKG ---
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
[2019-09-29] MEDS ORDERED: CLOM75CA2 PO (20:55)
[2019-09-29] MEDS ORDERED: ALLO300T PO (20:55)
[2019-09-29] MEDS ORDERED: ROSU20TA28 PO (20:55)
[2019-09-29] MEDS ORDERED: CLON0.5T4 PO (20:55)
[2019-09-29] MEDS ORDERED: SERT100T8 PO (20:55)
[2019-09-29] MEDS ORDERED: AMLO10TA8 PO (20:55)
[2019-09-29] MEDS ORDERED: DEXT20TA24 PO (20:55)
--- NOTE | 2019-09-29 23:10 | PDOC2 ---
NEUROLOGY CONSULT Date of Admission Date of Admission DATE: 09/29/19 TIME: 22:56 Reason for Consult Reason for Consult: IMPRESSION: Blurred vision. Dizziness. Unsteadiness. Chest pain. DM. HTN. HLD. Anxiety. Cannabinoids positive. Over weight. RECOMMENDATIONS/PLAN: ASA 325 mg daily. Lab: lipid panel. Brain MRI w/o contrast. Please consul Cardiology. Treat medical diseases. Patient education for drug abstinence but he stated marijuana is for his depression. HISTORY OF THE PRESENT ILLNESS: This is a 64 -year-old male patient who presented to the ER of [facility] with complaints of midsternal chest pain that started at 9:30 this morning. The axel ent also states that he has been having bilateral blurry vision, dizziness and unsteadiness since this morning. He said he had clots in his eyes before and has part of his vision obscured. The patient's stated that she felt that he was a little slower to respond and had difficulty getting his words out. 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 Past Medical History Cardiovascular: HTN, Hyperlipidemia Psych: Anxiety Kidney Stone PAST SURGERY HISTORY: Appendectomy, STENT IN KIDNEY, BIALT CATARACT ALLERGY: Unknown MEDICATIONS: Refer to [facility] FAMILY HISTORY: His mother has depression. SOCIAL HISTORY: Lives at home. Denies current smoking and drinking. He uses marijuana for many years. He smoked in the past but quit about 10 years ago. REVIEW OF SYSTEMS: Constitutional: No malnutrition, weight loss, cachexia. Head: No traumatic brain or head injury. Skin: No edema, or rash. Ear: No infection. Eyes: No vision loss or color blindness. Nose: No bleeding or purulent discharges. Hearing: No hearing decrease. Neck: No injury. Cardiac: HTN, HLD. Pulmonary: No COPD. GI: No GI ulcer, GI bleeding. Urinary/genital: No dysuria, incontinence, urinary retention. Endocrinologic: Unremarkable. Skeletomuscular: No muscular atrophy, deformity. Neurological: see HP. Psychiatric: Marijuana use/abuse. Otherwise, not [id number] review of systems. PHYSICAL EXAMINATION: General appearance is in no acute distress. HEENT: Normocephalic and nontraumatic. Eyes, nose, ears, and throat are unremarkable. Neck is supple. No lymphadenopathy. No crepitus. Cardiovascular: S1, S2, regular rate and rhythm. Pulmonary: Clear to auscultation bilaterally. Abdomen: Bowel sounds are positive. Extremities: No rash, lesions, or edema. No restriction of range of motion NEUROLOGICAL EXAMINATION: Alert Oriented to time, place and person. PERRL. EOMI. CN: no focal findings. Muscle tone: within normal. Muscle strength: 5 DTR: 2 Plantar reflex: Flexor response bilaterally Gait: not examined in bed. Sensory exam: no abnormal findings. No cerebellar signs elicited. F-T-N test accurate. Current Medications Current Medications Current Medications Aspirin (Children'S Aspirin) 324 mg 1X ONCE PO Last administered on 09/29/19at 15:39; Start 09/29/19 at 15:15; Stop 09/29/19 at 15:16; Status DC Sodium Chloride 1,000 ml @ 1,000 mls/hr 1X ONCE IV Last administered on 09/29/19at 15:40; Start 09/29/19 at 15:15; Stop 09/29/19 at 16:14; Status DC Iohexol (Omnipaque 350 Mg/ml) 75 ml 1X ONCE IV Last administered on 09/29/19at 15:35; Start 09/29/19 at 15:15; Stop 09/29/19 at 15:16; Status DC Info (CONTRAST GIVEN -- Rx MONITORING) 1 each PRN DAILY PRN MC SEE COMMENTS; Start 09/29/19 at 15:15; Stop 10/01/19 at 15:14 Ondansetron HCl (Zofran) 4 mg PRN Q8HRS PRN IV NAUSEA/VOMITING; Start 09/29/19 at 17:30; Stop 09/30/19 at 17:29 Ondansetron HCl (Zofran) 4 mg PRN Q4HRS PRN IV NAUSEA/VOMITING; Start 09/29/19 at 17:30 Zolpidem Tartrate (Ambien) 5 mg PRN QHS PRN PO INSOMNIA; Start 09/29/19 at 17:30 Acetaminophen (Tylenol) 650 mg PRN Q4HRS PRN PO TEMP OVER 100.4F OR MILD PAIN; Start 09/29/19 at 17:30 Docusate Sodium (Colace) 100 mg PRN BID PRN PO CONSTIPATION; Start 09/29/19 at 17:30 Guaifenesin (Robitussin) 200 mg PRN Q4HRS PRN PO COUGH; Start 09/29/19 at 17:30 Lorazepam (Ativan) 0.5 mg PRN Q4HRS PRN PO ANXIETY / AGITATION; Start 09/29/19 at 17:30 Enoxaparin Sodium (Lovenox 40mg Syringe) 40 mg DAILY SQ ; Start 09/30/19 at 09:00 Oxycodone/ Acetaminophen (Percocet 5/325) 1 tab PRN Q6HRS PRN PO PAIN; Start 09/29/19 at 17:30 Tamsulosin HCl (Flomax) 0.4 mg DAILY PO ; Start 09/30/19 at 09:00 Active Scripts Active Reported Sertraline Hcl 100 Mg Tablet 100 Mg PO DAILY Rosuvastatin Calcium 20 Mg Tablet 20 Mg PO HS Allopurinol 300 Mg Tablet 300 Mg PO DAILY Clomipramine Hcl 75 Mg Capsule 75 Mg PO HS Clonazepam 0.5 Mg Tablet 0.5 Mg PO HS Amphetamine Salts 20 Mg Tablet (Dextroamphetamine/Amphetamine) 20 Mg Tablet 20 Mg PO TID Amlodipine Besylate 10 Mg Tablet 10 Mg PO HS Allergies Allergies: Allergies Coded Allergies Type Severity Reaction Last Updated Verified Penicillins Allergy Intermediate 04/20/17 Yes ROS Review of System The patient denies any associated fevers, chills, headache, ear pain, rhinorrhea, sore throat, stiff neck, productive cough, chest pain, shortness of breath, back or flank pain, abdominal pain, nausea, vomiting, diarrhea, constipation, dysuria, rash, numbness, weakness, tingling, incontinence, difficulty ambulating, or diaphoresis. Physical Exam Physical Exam General: Well developed, well nourished, no acute distress, well appearing HEENT: Pupils equally round and reactive to light, EOMI, no discharge, normal conjunctiva Neck: Supple, no nuchal rigidity, no JVD, trachea midline, no tenderness Cardiac: RRR, no murmurs, no gallops, no rubs Chest/Lungs: CTAB, no wheeze, no rhonchi, no crackles Abdomen: soft, non-distended, no guarding, no peritoneal signs, non-tender Back: No tenderness Extremities: no edema, pulses intact, non-tender,capillary refill <3 sec bilateral upper and lower extremities, Neuro: Alert and oriented x 4, no focal deficits, normal speech Vitals Vitals: Vital Signs Date Time Temp Pulse Resp B/P (MAP) Pulse Ox O2 Delivery O2 Flow Rate FiO2 09/29/19 20:13 98.4 79 20 181/100 (127) 97 Room Air 98.4 Labs Labs Laboratory Tests Test 09/29/19 15:10 09/29/19 16:30 09/29/19 20:00 White Blood Count 5.5 x10^3/uL (4.0-11.0) Red Blood Count 5.19 x10^6/uL (4.30-5.70) Hemoglobin 15.2 g/dL (13.0-17.5) Hematocrit 44.4 % (39.0-53.0) Mean Corpuscular Volume 86 fL (79-100) Mean Corpuscular Hemoglobin 29 pg (25-35) Mean Corpuscular Hemoglobin Concent 34 g/dL (31-37) Red Cell Distribution Width 14.8 % (11.5-14.5) Platelet Count 220 x10^3/uL (140-400) Neutrophils (%) (Auto) 59 % (31-73) Lymphocytes (%) (Auto) 30 % (24-48) Monocytes (%) (Auto) 9 % (0-9) Eosinophils (%) (Auto) 1 % (0-3) Basophils (%) (Auto) 1 % (0-3) Neutrophils # (Auto) 3.3 x10^3/uL (1.8-7.7) Lymphocytes # (Auto) 1.7 x10^3/uL (1.0-4.8) Monocytes # (Auto) 0.5 x10^3/uL (0.0-1.1) Eosinophils # (Auto) 0.1 x10^3/uL (0.0-0.7) Basophils # (Auto) 0.0 x10^3/uL (0.0-0.2) Prothrombin Time 12.7 SEC (11.7-14.0) Prothromb Time International Ratio 1.0 (0.8-1.1) Activated Partial Thromboplast Time 32 SEC (24-38) Sodium Level 138 mmol/L (136-145) Potassium Level 4.0 mmol/L (3.5-5.1) Chloride Level 101 mmol/L (98-107) Carbon Dioxide Level 30 mmol/L (21-32) Anion Gap 7 (6-14) Blood Urea Nitrogen 12 mg/dL (8-26) Creatinine 1.0 mg/dL (0.7-1.3) Estimated GFR (Cockcroft-Gault) 75.5 BUN/Creatinine Ratio 12 (6-20) Glucose Level 95 mg/dL (70-99) Calcium Level 8.8 mg/dL (8.5-10.1) Total Bilirubin 0.5 mg/dL (0.2-1.0) Aspartate Amino Transf (AST/SGOT) 21 U/L (15-37) Alanine Aminotransferase (ALT/SGPT) 33 U/L (16-63) Alkaline Phosphatase 50 U/L (46-116) Troponin I Quantitative < 0.017 ng/mL (0.000-0.055) < 0.017 ng/mL (0.000-0.055) Total Protein 7.7 g/dL (6.4-8.2) Albumin 3.9 g/dL (3.4-5.0) Albumin/Globulin Ratio 1.0 (1.0-1.7) Ethyl Alcohol Level < 10 mg/dL (0-10) Urine Collection Type Unknown Urine Color Yellow Urine Clarity Clear Urine pH 8.0 (<5.0-8.0) Urine Specific [place] >=1.030 (1.000-1.030) Urine Protein Negative mg/dL (NEG-TRACE) Urine Glucose (UA) Negative mg/dL (NEG) Urine Ketones (Stick) Negative mg/dL (NEG) Urine Blood Negative (NEG) Urine Nitrite Negative (NEG) Urine Bilirubin Negative (NEG) Urine Urobilinogen Dipstick 0.2 mg/dL (0.2 mg/dL) Urine Leukocyte Esterase Negative (NEG) Urine RBC 0 /HPF (0-2) Urine WBC Rare /HPF (0-4) Urine Squamous Epithelial Cells Few /LPF Urine Bacteria Few /HPF (0-FEW) Urine Opiates Screen Neg (NEG) Urine Methadone Screen Neg (NEG) Urine Barbiturates Neg (NEG) Urine Phencyclidine Screen Neg (NEG) Urine Amphetamine/Methamphetamine Pos (NEG) Urine Benzodiazepines Screen Neg (NEG) Urine Cocaine Screen Neg (NEG) Urine Cannabinoids Screen Pos (NEG) Urine Ethyl Alcohol Neg (NEG) Laboratory Tests Test 09/29/19 15:10 09/29/19 16:30 09/29/19 20:00 White Blood Count 5.5 x10^3/uL (4.0-11.0) Red Blood Count 5.19 x10^6/uL (4.30-5.70) Hemoglobin 15.2 g/dL (13.0-17.5) Hematocrit 44.4 % (39.0-53.0) Mean Corpuscular Volume 86 fL (79-100) Mean Corpuscular Hemoglobin 29 pg (25-35) Mean Corpuscular Hemoglobin Concent 34 g/dL (31-37) Red Cell Distribution Width 14.8 % (11.5-14.5) Platelet Count 220 x10^3/uL (140-400) Neutrophils (%) (Auto) 59 % (31-73) Lymphocytes (%) (Auto) 30 % (24-48) Monocytes (%) (Auto) 9 % (0-9) Eosinophils (%) (Auto) 1 % (0-3) Basophils (%) (Auto) 1 % (0-3) Neutrophils # (Auto) 3.3 x10^3/uL (1.8-7.7) Lymphocytes # (Auto) 1.7 x10^3/uL (1.0-4.8) Monocytes # (Auto) 0.5 x10^3/uL (0.0-1.1) Eosinophils # (Auto) 0.1 x10^3/uL (0.0-0.7) Basophils # (Auto) 0.0 x10^3/uL (0.0-0.2) Prothrombin Time 12.7 SEC (11.7-14.0) Prothromb Time International Ratio 1.0 (0.8-1.1) Activated Partial Thromboplast Time 32 SEC (24-38) Sodium Level 138 mmol/L (136-145) Potassium Level 4.0 mmol/L (3.5-5.1) Chloride Level 101 mmol/L (98-107) Carbon Dioxide Level 30 mmol/L (21-32) Anion Gap 7 (6-14) Blood Urea Nitrogen 12 mg/dL (8-26) Creatinine 1.0 mg/dL (0.7-1.3) Estimated GFR (Cockcroft-Gault) 75.5 BUN/Creatinine Ratio 12 (6-20) Glucose Level 95 mg/dL (70-99) Calcium Level 8.8 mg/dL (8.5-10.1) Total Bilirubin 0.5 mg/dL (0.2-1.0) Aspartate Amino Transf (AST/SGOT) 21 U/L (15-37) Alanine Aminotransferase (ALT/SGPT) 33 U/L (16-63) Alkaline Phosphatase 50 U/L (46-116) Troponin I Quantitative < 0.017 ng/mL (0.000-0.055) < 0.017 ng/mL (0.000-0.055) Total Protein 7.7 g/dL (6.4-8.2) Albumin 3.9 g/dL (3.4-5.0) Albumin/Globulin Ratio 1.0 (1.0-1.7) Ethyl Alcohol Level < 10 mg/dL (0-10) Urine Collection Type Unknown Urine Color Yellow Urine Clarity Clear Urine pH 8.0 (<5.0-8.0) Urine Specific [place] >=1.030 (1.000-1.030) Urine Protein Negative mg/dL (NEG-TRACE) Urine Glucose (UA) Negative mg/dL (NEG) Urine Ketones (Stick) Negative mg/dL (NEG) Urine Blood Negative (NEG) Urine Nitrite Negative (NEG) Urine Bilirubin Negative (NEG) Urine Urobilinogen Dipstick 0.2 mg/dL (0.2 mg/dL) Urine Leukocyte Esterase Negative (NEG) Urine RBC 0 /HPF (0-2) Urine WBC Rare /HPF (0-4) Urine Squamous Epithelial Cells Few /LPF Urine Bacteria Few /HPF (0-FEW) Urine Opiates Screen Neg (NEG) Urine Methadone Screen Neg (NEG) Urine Barbiturates Neg (NEG) Urine Phencyclidine Screen Neg (NEG) Urine Amphetamine/Methamphetamine Pos (NEG) Urine Benzodiazepines Screen Neg (NEG) Urine Cocaine Screen Neg (NEG) Urine Cannabinoids Screen Pos (NEG) Urine Ethyl Alcohol Neg (NEG) SHARLENE URIBE MD Sep 29, 2019 23:10
[2019-09-30 03:00] VITALS: BP 147/92
[2019-09-30 06:31] LABS: CHOLESTEROL/HDL RATIO 5.7
[2019-09-30 07:00] VITALS: BP 163/93
--- NOTE | 2019-09-30 08:15 | PDOC2 ---
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 I tried to see him this morning but was at MRI. is currently at bedside and pt is back. Reports that he has been having intermittent chest tightness in the last 2 yrs and no significant SOA. 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 Reports intermittent dizziness and palpitations. What brought him to ED is at work he was noted to be sitting and was having blurred vision and and was talking but not making any sense. No unilateral weakness. He takes adderall when he goes to work due to narcolepsy. He also just tried some gummies that contains marijuana. Reports that he has OCD and has depression which he said he is depressed but no suicidal thought and see a counselor/psychiatrist as an outpt. He has been sleeping more than usual. PAST MEDICAL HISTORY Cardiovascular: HTN, Hyperlipidemia Pulmonary: Other (ZAHRA) GI: GERD Psych: Anxiety Musculoskeletal: Osteoarthritis, Other (diastesis recti) Rheumatologic: Gout ENT: Other (cataract) Renal/: Other (nephrolithiasis) PAST SURGICAL HISTORY Past Surgical History: Appendectomy, Cataract Removal, Other (renal stone removal) FAMILY HISTORY Family History: Coronary Artery Disease (mother with premature CAD) SOCIAL HISTORY Smoke: Quit ALCOHOL: occassional Drugs: Marijuana Lives: with Family CURRENT MEDICATIONS CURRENT MEDICATIONS Current Medications Medications (Trade) Dose Ordered Sig/Sarkis Route PRN Reason Start Time Stop Time Status Last Admin Dose Admin Aspirin (Children'S Aspirin) 324 mg 1X ONCE PO 09/29/19 15:15 09/29/19 15:16 DC 09/29/19 15:39 Sodium Chloride 1,000 ml @ 1,000 mls/hr 1X ONCE IV 09/29/19 15:15 09/29/19 16:14 DC 09/29/19 15:40 Iohexol (Omnipaque 350 Mg/ml) 75 ml 1X ONCE IV 09/29/19 15:15 09/29/19 15:16 DC 09/29/19 15:35 Zolpidem Tartrate (Ambien) 5 mg PRN QHS PRN PO INSOMNIA 09/29/19 17:30 09/29/19 23:09 Lorazepam (Ativan) 0.5 mg PRN Q4HRS PRN PO ANXIETY / AGITATION 09/29/19 17:30 09/29/19 23:09 ALLERGIES ALLERGIES: Coded Allergies: Penicillins (Verified Allergy, Intermediate, 04/20/17) ROS Review of System 14 point ROS evaluated with pertinent positives noted per HPI PHYSICAL EXAM General: Alert, Oriented X3, Cooperative, No acute distress HEENT: Atraumatic, Mucous membr. moist/pink Lungs: Clear to auscultation, Normal air movement Heart: Regular rate (SR), Normal S1, Normal S2, Other (2/6 systolic murmur to LLS border) Abdomen: Soft, No tenderness Extremities: No cyanosis, No edema Skin: No breakdown, No significant lesion Neuro: Normal speech, Sensation intact Psych/Mental Status: Mental status NL, Other (depressed) MUSCULOSKELETAL: Osteoarthritic changes both hands VITALS/I&O VITALS/I&O: Vital Signs Date Time Temp Pulse Resp B/P (MAP) Pulse Ox O2 Delivery O2 Flow Rate FiO2 09/30/19 07:00 98.1 69 18 163/93 (116) 97 Room Air 98.1 I & O 09/29/19 09/29/19 09/30/19 15:00 23:00 07:00 Intake Total 1240 ml 0 ml Output Total 250 ml 400 ml Balance 990 ml -400 ml LABS Lab: Laboratory Tests Test 09/29/19 15:10 09/29/19 16:30 09/29/19 20:00 09/30/19 00:05 White Blood Count 5.5 x10^3/uL (4.0-11.0) Red Blood Count 5.19 x10^6/uL (4.30-5.70) Hemoglobin 15.2 g/dL (13.0-17.5) Hematocrit 44.4 % (39.0-53.0) Mean Corpuscular Volume 86 fL (79-100) Mean Corpuscular Hemoglobin 29 pg (25-35) Mean Corpuscular Hemoglobin Concent 34 g/dL (31-37) Red Cell Distribution Width 14.8 % (11.5-14.5) H Platelet Count 220 x10^3/uL (140-400) Neutrophils (%) (Auto) 59 % (31-73) Lymphocytes (%) (Auto) 30 % (24-48) Monocytes (%) (Auto) 9 % (0-9) Eosinophils (%) (Auto) 1 % (0-3) Basophils (%) (Auto) 1 % (0-3) Neutrophils # (Auto) 3.3 x10^3/uL (1.8-7.7) Lymphocytes # (Auto) 1.7 x10^3/uL (1.0-4.8) Monocytes # (Auto) 0.5 x10^3/uL (0.0-1.1) Eosinophils # (Auto) 0.1 x10^3/uL (0.0-0.7) Basophils # (Auto) 0.0 x10^3/uL (0.0-0.2) Prothrombin Time 12.7 SEC (11.7-14.0) Prothrombin Time INR 1.0 (0.8-1.1) Activated Partial Thromboplast Time 32 SEC (24-38) Sodium Level 138 mmol/L (136-145) Potassium Level 4.0 mmol/L (3.5-5.1) Chloride Level 101 mmol/L (98-107) Carbon Dioxide Level 30 mmol/L (21-32) Anion Gap 7 (6-14) Blood Urea Nitrogen 12 mg/dL (8-26) Creatinine 1.0 mg/dL (0.7-1.3) Estimated GFR (Cockcroft-Gault) 75.5 BUN/Creatinine Ratio 12 (6-20) Glucose Level 95 mg/dL (70-99) Calcium Level 8.8 mg/dL (8.5-10.1) Total Bilirubin 0.5 mg/dL (0.2-1.0) Aspartate Amino Transferase (AST) 21 U/L (15-37) Alanine Aminotransferase (ALT) 33 U/L (16-63) Alkaline Phosphatase 50 U/L (46-116) Troponin I Quantitative < 0.017 ng/mL (0.000-0.055) < 0.017 ng/mL (0.000-0.055) < 0.017 ng/mL (0.000-0.055) Total Protein 7.7 g/dL (6.4-8.2) Albumin 3.9 g/dL (3.4-5.0) Albumin/Globulin Ratio 1.0 (1.0-1.7) Ethyl Alcohol Level < 10 mg/dL (0-10) Urine Collection Type Unknown Urine Color Yellow Urine Clarity Clear Urine pH 8.0 (<5.0-8.0) Urine Specific [place] >=1.030 (1.000-1.030) Urine Protein Negative mg/dL (NEG-TRACE) Urine Glucose (UA) Negative mg/dL (NEG) Urine Ketones (Stick) Negative mg/dL (NEG) Urine Blood Negative (NEG) Urine Nitrite Negative (NEG) Urine Bilirubin Negative (NEG) Urine Urobilinogen Dipstick 0.2 mg/dL (0.2 mg/dL) Urine Leukocyte Esterase Negative (NEG) Urine RBC 0 /HPF (0-2) Urine WBC Rare /HPF (0-4) Urine Squamous Epithelial Cells Few /LPF Urine Bacteria Few /HPF (0-FEW) Urine Opiates Screen Neg (NEG) Urine Methadone Screen Neg (NEG) Urine Barbiturates Neg (NEG) Urine Phencyclidine Screen Neg (NEG) Urine Amphetamine/Methamphetamine Pos (NEG) Urine Benzodiazepines Screen Neg (NEG) Urine Cocaine Screen Neg (NEG) Urine Cannabinoids Screen Pos (NEG) Urine Ethyl Alcohol Neg (NEG) Test 09/30/19 02:00 Triglycerides Level 213 mg/dL (0-150) H Cholesterol Level 255 mg/dL (0-200) H LDL Cholesterol, Calculated 167 mg/dL (0-100) H VLDL Cholesterol, Calculated 43 mg/dL (0-40) H Non-HDL Cholesterol Calculated 210 mg/dL (0-129) H HDL Cholesterol 45 mg/dL (40-60) Cholesterol/HDL Ratio 5.7 Laboratory Tests 09/29/19 15:10 Laboratory Tests 09/29/19 15:10 ASSESSMENT/PLAN ASSESSMENT/PLAN 1. Chest pain: with risk factors, trops nml 2. Suspecting Hypertensive encephalopathy: brain MRI neg for acute CVA 3. HTN: labile episodes 4. HLP: not on goal 5. Depression: not controlled, no suicidal ideation. Will need to outpt counselo r defer meds to PCP 6. Hx of narcolepsy hence aderrall and hx of OCD hence anafranil 7. Marijuana use Recommendations 1. Optimize home crestor, unable to tolerate lipitor and zocor in the past. Or could consider [id number] 2. Consider consulting Dr. Barahona 3. MPI, TTE today 4. Continue home norvasc, start on HCTZ. was on metoprolol >2 months ago possibly taken off due to depression. SAPPHIRE ALLISON MD 09/30/19 3786: CARDIAC CONSULT ASSESSMENT/PLAN ASSESSMENT/PLAN Patient seen and examined. Agree with RESEARCH AND DEVELOPMENT TESTER's assessment and plan. CP with atypical features. OH ruled out. 2D echo showed normal LVF without any WMA MPI did not show any significant ischemia Agree with continuing norvasc and start HCTZ for better BP control Thank you for your consultation MELODY LEVY APRN Sep 30, 2019 08:15 SAPPHIRE ALLISON MD Sep 30, 2019 18:46
--- NOTE | 2019-09-30 08:51 | PDOC ---
PROGRESS NOTES Assessment Problems Medical Problems: (1) Blurry vision, bilateral Status: Acute (2) Chest pain Status: Acute (3) Dysarthria Status: Acute Blurred vision., diizziness. unsteadiness, may have been hypertensive encephalopathy, these non-localizing symptoms are less likely to have been a stroke or transient ischemic attack Chest pain. DM. HTN. HLD. Anxiety. Cannabinoids positive. Plan ASA 325 mg daily. Lab: lipid panel. Await brain MRI w/o contrast. Treat medical diseases. Home later today if MRI negative and cardiology workup negative Subjective Feels much better, wants to go home Objective Vital Signs Date Time Temp Pulse Resp B/P (MAP) Pulse Ox O2 Delivery O2 Flow Rate FiO2 09/30/19 07:00 98.1 69 18 163/93 (116) 97 Room Air 98.1 Intake and Output 09/30/19 06:59 Intake Total 1240 ml Output Total 650 ml Balance 590 ml Intake Oral 240 ml IV Total 1000 ml Output Urine Total 650 ml PHYSICAL EXAM Alert. Oriented to time, place and person. PERRL. EOMI. CN: no focal findings. Muscle tone: normal. Muscle strength: 5/5 DTR: 2+ Plantar reflex: flexor Gait: not examined in bed. Sensory exam: no abnormal findings. No cerebellar signs elicited. Review of Relevant I have reviewed the following items nalini (where applicable) has been applied. Labs Laboratory Tests Test 09/29/19 15:10 09/29/19 16:30 09/29/19 20:00 09/30/19 00:05 White Blood Count 5.5 x10^3/uL (4.0-11.0) Red Blood Count 5.19 x10^6/uL (4.30-5.70) Hemoglobin 15.2 g/dL (13.0-17.5) Hematocrit 44.4 % (39.0-53.0) Mean Corpuscular Volume 86 fL (79-100) Mean Corpuscular Hemoglobin 29 pg (25-35) Mean Corpuscular Hemoglobin Concent 34 g/dL (31-37) Red Cell Distribution Width 14.8 % (11.5-14.5) Platelet Count 220 x10^3/uL (140-400) Neutrophils (%) (Auto) 59 % (31-73) Lymphocytes (%) (Auto) 30 % (24-48) Monocytes (%) (Auto) 9 % (0-9) Eosinophils (%) (Auto) 1 % (0-3) Basophils (%) (Auto) 1 % (0-3) Neutrophils # (Auto) 3.3 x10^3/uL (1.8-7.7) Lymphocytes # (Auto) 1.7 x10^3/uL (1.0-4.8) Monocytes # (Auto) 0.5 x10^3/uL (0.0-1.1) Eosinophils # (Auto) 0.1 x10^3/uL (0.0-0.7) Basophils # (Auto) 0.0 x10^3/uL (0.0-0.2) Prothrombin Time 12.7 SEC (11.7-14.0) Prothromb Time International Ratio 1.0 (0.8-1.1) Activated Partial Thromboplast Time 32 SEC (24-38) Sodium Level 138 mmol/L (136-145) Potassium Level 4.0 mmol/L (3.5-5.1) Chloride Level 101 mmol/L (98-107) Carbon Dioxide Level 30 mmol/L (21-32) Anion Gap 7 (6-14) Blood Urea Nitrogen 12 mg/dL (8-26) Creatinine 1.0 mg/dL (0.7-1.3) Estimated GFR (Cockcroft-Gault) 75.5 BUN/Creatinine Ratio 12 (6-20) Glucose Level 95 mg/dL (70-99) Calcium Level 8.8 mg/dL (8.5-10.1) Total Bilirubin 0.5 mg/dL (0.2-1.0) Aspartate Amino Transf (AST/SGOT) 21 U/L (15-37) Alanine Aminotransferase (ALT/SGPT) 33 U/L (16-63) Alkaline Phosphatase 50 U/L (46-116) Troponin I Quantitative < 0.017 ng/mL (0.000-0.055) < 0.017 ng/mL (0.000-0.055) < 0.017 ng/mL (0.000-0.055) Total Protein 7.7 g/dL (6.4-8.2) Albumin 3.9 g/dL (3.4-5.0) Albumin/Globulin Ratio 1.0 (1.0-1.7) Ethyl Alcohol Level < 10 mg/dL (0-10) Urine Collection Type Unknown Urine Color Yellow Urine Clarity Clear Urine pH 8.0 (<5.0-8.0) Urine Specific Holladay >=1.030 (1.000-1.030) Urine Protein Negative mg/dL (NEG-TRACE) Urine Glucose (UA) Negative mg/dL (NEG) Urine Ketones (Stick) Negative mg/dL (NEG) Urine Blood Negative (NEG) Urine Nitrite Negative (NEG) Urine Bilirubin Negative (NEG) Urine Urobilinogen Dipstick 0.2 mg/dL (0.2 mg/dL) Urine Leukocyte Esterase Negative (NEG) Urine RBC 0 /HPF (0-2) Urine WBC Rare /HPF (0-4) Urine Squamous Epithelial Cells Few /LPF Urine Bacteria Few /HPF (0-FEW) Urine Opiates Screen Neg (NEG) Urine Methadone Screen Neg (NEG) Urine Barbiturates Neg (NEG) Urine Phencyclidine Screen Neg (NEG) Urine Amphetamine/Methamphetamine Pos (NEG) Urine Benzodiazepines Screen Neg (NEG) Urine Cocaine Screen Neg (NEG) Urine Cannabinoids Screen Pos (NEG) Urine Ethyl Alcohol Neg (NEG) Test 09/30/19 02:00 Triglycerides Level 213 mg/dL (0-150) Cholesterol Level 255 mg/dL (0-200) LDL Cholesterol, Calculated 167 mg/dL (0-100) VLDL Cholesterol, Calculated 43 mg/dL (0-40) Non-HDL Cholesterol Calculated 210 mg/dL (0-129) HDL Cholesterol 45 mg/dL (40-60) Cholesterol/HDL Ratio 5.7 Laboratory Tests Test 09/29/19 15:10 09/29/19 16:30 09/29/19 20:00 09/30/19 00:05 White Blood Count 5.5 x10^3/uL (4.0-11.0) Red Blood Count 5.19 x10^6/uL (4.30-5.70) Hemoglobin 15.2 g/dL (13.0-17.5) Hematocrit 44.4 % (39.0-53.0) Mean Corpuscular Volume 86 fL (79-100) Mean Corpuscular Hemoglobin 29 pg (25-35) Mean Corpuscular Hemoglobin Concent 34 g/dL (31-37) Red Cell Distribution Width 14.8 % (11.5-14.5) Platelet Count 220 x10^3/uL (140-400) Neutrophils (%) (Auto) 59 % (31-73) Lymphocytes (%) (Auto) 30 % (24-48) Monocytes (%) (Auto) 9 % (0-9) Eosinophils (%) (Auto) 1 % (0-3) Basophils (%) (Auto) 1 % (0-3) Neutrophils # (Auto) 3.3 x10^3/uL (1.8-7.7) Lymphocytes # (Auto) 1.7 x10^3/uL (1.0-4.8) Monocytes # (Auto) 0.5 x10^3/uL (0.0-1.1) Eosinophils # (Auto) 0.1 x10^3/uL (0.0-0.7) Basophils # (Auto) 0.0 x10^3/uL (0.0-0.2) Prothrombin Time 12.7 SEC (11.7-14.0) Prothromb Time International Ratio 1.0 (0.8-1.1) Activated Partial Thromboplast Time 32 SEC (24-38) Sodium Level 138 mmol/L (136-145) Potassium Level 4.0 mmol/L (3.5-5.1) Chloride Level 101 mmol/L (98-107) Carbon Dioxide Level 30 mmol/L (21-32) Anion Gap 7 (6-14) Blood Urea Nitrogen 12 mg/dL (8-26) Creatinine 1.0 mg/dL (0.7-1.3) Estimated GFR (Cockcroft-Gault) 75.5 BUN/Creatinine Ratio 12 (6-20) Glucose Level 95 mg/dL (70-99) Calcium Level 8.8 mg/dL (8.5-10.1) Total Bilirubin 0.5 mg/dL (0.2-1.0) Aspartate Amino Transf (AST/SGOT) 21 U/L (15-37) Alanine Aminotransferase (ALT/SGPT) 33 U/L (16-63) Alkaline Phosphatase 50 U/L (46-116) Troponin I Quantitative < 0.017 ng/mL (0.000-0.055) < 0.017 ng/mL (0.000-0.055) < 0.017 ng/mL (0.000-0.055) Total Protein 7.7 g/dL (6.4-8.2) Albumin 3.9 g/dL (3.4-5.0) Albumin/Globulin Ratio 1.0 (1.0-1.7) Ethyl Alcohol Level < 10 mg/dL (0-10) Urine Collection Type Unknown Urine Color Yellow Urine Clarity Clear Urine pH 8.0 (<5.0-8.0) Urine Specific Holladay >=1.030 (1.000-1.030) Urine Protein Negative mg/dL (NEG-TRACE) Urine Glucose (UA) Negative mg/dL (NEG) Urine Ketones (Stick) Negative mg/dL (NEG) Urine Blood Negative (NEG) Urine Nitrite Negative (NEG) Urine Bilirubin Negative (NEG) Urine Urobilinogen Dipstick 0.2 mg/dL (0.2 mg/dL) Urine Leukocyte Esterase Negative (NEG) Urine RBC 0 /HPF (0-2) Urine WBC Rare /HPF (0-4) Urine Squamous Epithelial Cells Few /LPF Urine Bacteria Few /HPF (0-FEW) Urine Opiates Screen Neg (NEG) Urine Methadone Screen Neg (NEG) Urine Barbiturates Neg (NEG) Urine Phencyclidine Screen Neg (NEG) Urine Amphetamine/Methamphetamine Pos (NEG) Urine Benzodiazepines Screen Neg (NEG) Urine Cocaine Screen Neg (NEG) Urine Cannabinoids Screen Pos (NEG) Urine Ethyl Alcohol Neg (NEG) Test 09/30/19 02:00 Triglycerides Level 213 mg/dL (0-150) Cholesterol Level 255 mg/dL (0-200) LDL Cholesterol, Calculated 167 mg/dL (0-100) VLDL Cholesterol, Calculated 43 mg/dL (0-40) Non-HDL Cholesterol Calculated 210 mg/dL (0-129) HDL Cholesterol 45 mg/dL (40-60) Cholesterol/HDL Ratio 5.7 Medications Current Medications Aspirin (Children'S Aspirin) 324 mg 1X ONCE PO Last administered on 09/29/19at 15:39; Start 09/29/19 at 15:15; Stop 09/29/19 at 15:16; Status DC Sodium Chloride 1,000 ml @ 1,000 mls/hr 1X ONCE IV Last administered on 09/29/19at 15:40; Start 09/29/19 at 15:15; Stop 09/29/19 at 16:14; Status DC Iohexol (Omnipaque 350 Mg/ml) 75 ml 1X ONCE IV Last administered on 09/29/19at 15:35; Start 09/29/19 at 15:15; Stop 09/29/19 at 15:16; Status DC Info (CONTRAST GIVEN -- Rx MONITORING) 1 each PRN DAILY PRN MC SEE COMMENTS; Start 09/29/19 at 15:15; Stop 10/01/19 at 15:14 Ondansetron HCl (Zofran) 4 mg PRN Q8HRS PRN IV NAUSEA/VOMITING; Start 09/29/19 at 17:30; Stop 09/30/19 at 17:29 Ondansetron HCl (Zofran) 4 mg PRN Q4HRS PRN IV NAUSEA/VOMITING; Start 09/29/19 at 17:30 Zolpidem Tartrate (Ambien) 5 mg PRN QHS PRN PO INSOMNIA Last administered on 09/29/19at 23:09; Start 09/29/19 at 17:30 Acetaminophen (Tylenol) 650 mg PRN Q4HRS PRN PO TEMP OVER 100.4F OR MILD PAIN; Start 09/29/19 at 17:30 Docusate Sodium (Colace) 100 mg PRN BID PRN PO CONSTIPATION; Start 09/29/19 at 17:30 Guaifenesin (Robitussin) 200 mg PRN Q4HRS PRN PO COUGH; Start 09/29/19 at 17:30 Lorazepam (Ativan) 0.5 mg PRN Q4HRS PRN PO ANXIETY / AGITATION Last administered on 09/29/19at 23:09; Start 09/29/19 at 17:30 Enoxaparin Sodium (Lovenox 40mg Syringe) 40 mg DAILY SQ Last administered on 09/30/19at 08:33; Start 09/30/19 at 09:00 Oxycodone/ Acetaminophen (Percocet 5/325) 1 tab PRN Q6HRS PRN PO PAIN; Start 09/29/19 at 17:30 Tamsulosin HCl (Flomax) 0.4 mg DAILY PO ; Start 09/30/19 at 09:00 Active Scripts Active Reported Sertraline Hcl 100 Mg Tablet 100 Mg PO DAILY Rosuvastatin Calcium 20 Mg Tablet 20 Mg PO HS Allopurinol 300 Mg Tablet 300 Mg PO DAILY Clomipramine Hcl 75 Mg Capsule 75 Mg PO HS Clonazepam 0.5 Mg Tablet 0.5 Mg PO HS Amphetamine Salts 20 Mg Tablet (Dextroamphetamine/Amphetamine) 20 Mg Tablet 20 Mg PO TID Amlodipine Besylate 10 Mg Tablet 10 Mg PO HS Vitals/I & O Vital Sign - Last 24 Hours 09/29/19 09/29/19 09/29/19 09/29/19 13:38 14:10 14:46 15:46 Temp 98.0 98.0 98.0 98.0 Pulse 88 88 75 72 Resp 18 18 18 16 B/P (MAP) 156/108 (124) 156/108 (124) 167/94 (118) 157/85 (109) Pulse Ox 98 98 96 98 O2 Delivery Room Air Room Air Room Air Room Air 09/29/19 09/29/19 09/29/19 09/29/19 16:16 17:16 18:46 20:00 Pulse 83 82 Resp 16 16 16 B/P (MAP) 165/96 (119) 150/98 (115) Pulse Ox 98 98 98 O2 Delivery Room Air Room Air Room Air Room Air 09/29/19 09/29/19 09/29/19 09/30/19 20:00 20:13 23:15 03:00 Temp 98.4 98.3 97.9 98.4 98.3 97.9 Pulse 66 79 58 Resp 20 20 20 B/P (MAP) 139/72 (94) 181/100 (127) 147/92 (110) Pulse Ox 97 97 98 O2 Delivery Room Air Room Air Room Air 09/30/19 07:00 Temp 98.1 98.1 Pulse 69 Resp 18 B/P (MAP) 163/93 (116) Pulse Ox 97 O2 Delivery Room Air Intake and Output 09/29/19 09/29/19 09/30/19 14:59 22:59 06:59 Intake Total 1240 ml 0 ml Output Total 250 ml 400 ml Balance 990 ml -400 ml NORMA GEE MD Sep 30, 2019 08:51
[2019-09-30] MEDS ORDERED: TAMSULOSIN 0.4 MG CAP.ER.24H. PO SCH (09:00)
[2019-09-30] MEDS ORDERED: ENOXAPARIN 40 MG/0.4 ML SYRINGE. SQ SCH (09:00)
[2019-09-30 10:35] VITALS: BP 153/101
--- NOTE | 2019-09-30 11:28 | RAD ---
EXAMINATION: Magnetic resonance imaging (MRI) of the brain and brainstem without contrast 09/29/2019 9:51 PM HISTORY: Blurred vision TECHNIQUE: Multiplanar multi-weighted MRI of the brain and brainstem was performed without intravenous contrast using the general brain protocol. COMPARISON: CT head 09/29/2019. FINDINGS: The scalp and calvarium are normal. The superior sagittal sinus demonstrates normal venous flow. The corpus callosum is normal in shape and signal intensity. The posterior fossa is unremarkable. The pituitary and sella are normal. The brainstem and craniocervical junction are unremarkable. There are T2/FLAIR signal hyperintense foci in the periventricular and subcortical white matter most suggestive of mild chronic small vessel ischemic changes. Diffusion weighted images reveal no hyperintensities to suggest acute cerebral infarction. The susceptibility weighted sequences reveal no evidence of acute or chronic hemorrhage. The ventricles are normal in size and position without evidence of hydrocephalus. The paranasal sinuses are normal. The visualized portions of the mastoids are unremarkable. The orbits appear normal with exception of bilateral lens replacement. Normal flow voids are demonstrated in the carotid arteries and basilar artery. IMPRESSION: No evidence for acute or subacute ischemia. There are T2/FLAIR signal hyperintense foci in the periventricular and subcortical white matter most suggestive of mild chronic small vessel ischemic changes. Electronically signed by: Claudia Irene MD (09/30/2019 11:25 AM) [id number]
[2019-09-30] MEDS ORDERED: REGADENOSON 0.4 MG/5 ML DISP.SYRIN. IV ONE ×2 (13:45→14:00)
[2019-09-30] MEDS ORDERED: hydroCHLOROthiazide 25 MG TABLET PO SCH (15:00)
[2019-09-30 15:43] VITALS: BP 174/107
[2019-09-30] MEDS ORDERED: HYDR-2145 PO (17:30)
--- NOTE | 2019-09-30 18:10 | CARD ---
MR#: [id number] Date of Study: 09/30/2019 Ordering Physician: MELODY LEVY, Referring Physician: MELODY LEVY, Guido: Ann Matamoros APPROVED REPORT EXAM: Two-dimensional and M-mode echocardiogram with Doppler and color Doppler. Other Information Quality : AverageHR: 80bpm Rhythm : NSR INDICATION Dizziness and Vertigo RISK FACTORS Hypertension Hyperlipidemia 2D DIMENSIONS Left Atrium(2D)3.6 (1.6-4.0cm)IVSd1.6 (0.7-1.1cm) Aortic Root(2D)2.8 (2.0-3.7cm)LVDd4.3 (3.9-5.9cm) LVOT Diameter2.2 (1.8-2.4cm)PWd1.4 (0.7-1.1cm) LVDs3.7 (2.5-4.0cm)FS (%) 12.6 % SV22.4 ml Aortic Valve AoV Peak Octvaiano.143.9cm/Aurelia Peak GR.8.3mmHg Mitral Valve MV E Mmalhgjm26.6cm/sMV DECEL [id number] MV A Xxqmcwim79.4cm/sE/A Ratio0.7 MV A [id number] Pulmonary Vein S1 Iphbendd85.2cm/sD2 Ktwtbkdh26.2cm/s PVa [id number] LEFT VENTRICLE The left ventricle is normal size. There is mild concentric left ventricular hypertrophy. The left ve ntricular systolic function is normal and the ejection fraction is within normal range. The Ejection Fraction is 60-65%. There is normal LV segmental wall motion. The left ventricular diastolic function and filling is normal for age. RIGHT VENTRICLE The right ventricle is normal size. The right ventricular systolic function is normal. ATRIA The left atrium size is normal. The right atrium size is normal. The interatrial septum is intact wit h no evidence for an atrial septal defect or patent foramen ovale as noted on 2-D or Doppler imaging. AORTIC VALVE The aortic valve is mildly sclerotic. Doppler and Color Flow revealed no significant aortic regurgita tion. There is no significant aortic valvular stenosis. MITRAL VALVE The mitral valve is normal in structure and function. Doppler and Color Flow revealed trace mitral va lve regurgitation. TRICUSPID VALVE The tricuspid valve is normal in structure and function. Doppler and Color Flow revealed no tricuspid valve regurgitation noted. PULMONIC VALVE The pulmonary valve is normal in structure and function. Doppler and Color Flow revealed no pulmonic valvular regurgitation. GREAT VESSELS The aortic root is normal in size. The ascending aorta is normal in size. The IVC is normal in size a nd collapses >50% with inspiration. PERICARDIAL EFFUSION There is no evidence of significant pericardial effusion. Critical Notification Critical Value: No <Conclusion> The left ventricle is normal size. The left ventricular systolic function is normal and the ejection fraction is within normal range. The Ejection Fraction is 60-65%. There is mild concentric left ventricular hypertrophy. Doppler and Color Flow revealed no significant aortic regurgitation. There is no significant aortic valvular stenosis. Doppler and Color Flow revealed trace mitral valve regurgitation. Doppler and Color Flow revealed no tricuspid valve regurgitation noted. Signed by : Bryan Amin MD Electronically Approved : 09/30/2019 18:10:13
--- NOTE | 2019-09-30 18:13 | RAD ---
MR#: [id number] Date of Study: 09/30/2019 Ordering Physician: MELODY LEVY, Referring Physician: DIVINA LANGFORD Tech: MARCO Montalvo APPROVED REPORT Test Type: Pharmacological Stress Nurse/Tech: Ariana Terrazas RN Test Indications: Chest pain, dizzy spells Cardiac History: Family history, Hypertension,SVT,former smoker Medications: See Electronic Medical Record Medical History: See Electronic Medical Record Resting ECG: SR with BBB Resting Heart Rate: 71 bpm Resting Blood Pressure: 147/83mmHg Pretest Chest Pain: No chest pain Nurse/Tech Notes S1,S2 and lungs clear to auscultation. Patient stated he has spells at home where he feels dizzy and has to lay down for awhile before getting up to resume any activity. Consent: The procedure was explained to the patient in lay terms. Informed consent was witnessed. Adam yoder was entered into [employer]. History and Stress Test performed by MARCO Montalvo Pharm. Details Pharmacologic stress testing was performed using 0.4mg per 5ml of regadenoson given intravenously ove r 7-10 seconds. Stress Symptoms Dizziness POST EXERCISE Reason for Termination: Infusion complete Target HR: No Max HR: 88 bpm 66% of Maximum Predicted HR: 133 bpm Max Blood Pressure: 161/88mmHg Blood Pressure response to exercise: Normal blood pressure response during stress. Heart Rate response to exercise: WNL Chest Pain: No. Arrhythmia: No. ST Change: No. INTERPRETATION Stress EKG Conclusion: The baseline EKG shows a sinus rhythm, incomplete right bundle branch block an d mild nonspecific ST segment changes. The stress EKG shows no significant changes from baseline and no significant arrhythmias. No EKG evidence of stressed induced ischemia. Imaging Protocol IMAGE PROTOCOL: Rest Tc-99m/stress Tc-99m 1 day Rest: Stress: Viability: Radiopharm.Tc99m FxsmfcveoId10x Sestamibi Lnqr72lSg 33mCi Duration 15min. 10min. Img Date 09/30/2019 09/30/2019 Inj-Img Uhlp29oau. 60min. Rest Admin Site:IV - Left AntecubitalAdministrator:Cachorro MARCO Javier Stress Admin Site: IV - Left AntecubitalAdministrator: MARCO Montalvo STRESS DATA End Diast. Vol.86.0mlAv. Heart Rate77.0bpm End Syst. Vol.26.0mlCO Index BSA0.0L/min Myocardial Fcvu588.0gEject. Vxphdftt42.0% Stress Rates Pk. Fill Rate2.33EDV/secLVtime Pk. Fill 123.88msec Pk. Empty Rate4.54ESV/secLVtime Pk. Eyzjm453.57msec 07/22 Pk. Fill1.42EDV/sec Stress Scores Regional WT0.00Summed WT3.00 Regional WM0.00Summed WM0.00 LV Perfusion The stress scans showed no significant defects. The rest scans showed no significant defects. Nuclear imaging shows no reversible ischemia or infarct. Wall Motion Left ventricular function is normal with no regional wall motion abnormalities and an ejection fracti on of 70%. LV Perf. Quant 17 Seg. SSS0.00 17 Seg. SRS1.00 17 Seg. SDS0.00 Stress Defect Extent (% LAD)0.00Rest Defect Extent (% LAD)0.00Rev. Defect Extent (% LAD)0.00 Stress Defect Extent (% LCX) 0.00Rest Defect Extent (% LCX)0.00Rev. Defect Extent (% LCX)0.00 Stress Defect Extent (% RCA)0.00Rest Defect Extent (% RCA)0.00Rev. Defect Extent (% RCA)0.00 Stress Defect Extent (% LUCY)0.00Rest Defect Extent (% LUCY)0.00Rev. Defect Extent (% LUCY)0.00 Conclusion 1. No EKG evidence of stressed induced ischemia. 2. No significant arrhythmias. 3. Nuclear imaging shows no reversible ischemia or infarct. 4. Left ventricular systolic function is normal with an ejection fraction of 70%. 5. Low risk Lexiscan nuclear stress test. Signed by : Bryan Amin MD Electronically Approved : 09/30/2019 18:13:26
--- NOTE | 2019-09-30 18:43 | NUR ---
DISCHARGED PATIENT TO HOME. DISCHARGE INSTRUCTIONS GIVEN. PIV AND HEART MONITOR REMOVED. ESCORTED PATIENT OFF UNIT PER PATIENT AMBULATION INTO A PRIVATE VEHICLE.
[2019-09-30] MEDS ORDERED: amLODIPine BESYLATE 10 MG TABLET PO SCH (21:00)
== END 2019-09-30 18:50 | disposition home or self-care (01) | DRG 79 ==
LOC: ER 13:27 → 2 NORTH 17:14
PROVIDERS: ADMIT Internal Medicine; ATTEND Internal Medicine
DX: I67.4 Hypertensive encephalopathy (principal); R07.89 Other chest pain; E11.9 Type 2 diabetes mellitus without complications; E78.00 Pure hypercholesterolemia, unspecified; E78.5 Hyperlipidemia, unspecified; F12.90 Cannabis use, unspecified, uncomplicated; F32.9 Major depressive disorder, single episode, unspecified; F41.9 Anxiety disorder, unspecified; F42.9 Obsessive-compulsive disorder, unspecified; G47.419 Narcolepsy without cataplexy; I10 Essential (primary) hypertension; Z79.82 Long term (current) use of aspirin; Z81.8 Family history of other mental and behavioral disorders; Z82.49 Family history of ischemic heart disease and other diseases of the circulatory system; Z87.442 Personal history of urinary calculi; Z87.891 Personal history of nicotine dependence; Z90.49 Acquired absence of other specified parts of digestive tract; F90.9 Attention-deficit hyperactivity disorder, unspecified type; G47.33 Obstructive sleep apnea (adult) (pediatric); K21.9 Gastro-esophageal reflux disease without esophagitis; M10.9 Gout, unspecified; M19.90 Unspecified osteoarthritis, unspecified site; Z88.0 Allergy status to penicillin
CPT/HCPCS: 36415; 70450; 70496; 70498; 70551; 71046; 78452; 80053; 80061; 80307; 81001; 84443; 84484; 85025; 85610; 85730; 93005; 93017; 93306; A9500; G0480; J1650; J2785; J7030; Q9967; G0378

== ENCOUNTER 2021-09-09 09:00 | Outpatient (CLI) | payer OTHER, MEDICARE ==
[~2021-09-09] VITALS: Ht 172.7 cm; Wt 97.3 kg
[2021-09-09] VITALS (10 sets, daily range): BP systolic 99–140; BP diastolic 70–84
[~2021-09-09 09:00] MED LIST changes: +ALLO300T PO; +AMLO-187 PO; +CLOM75CA2 PO; +CLON0.5T4 PO; +DEXT20TA24 PO; +HYDR-2145 PO; +ROSU20TA28 PO; +SERT-268 PO
[2021-09-09 09:48] LABS: HEMATOCRIT 44.9 % (39.0-53.0); HEMOGLOBIN 14.7 g/dL (13.0-17.5); RED BLOOD COUNT 5.28 x10^6/uL (4.30-5.70); RED CELL DISTRIBUTION WIDTH 14.9 % (11.5-14.5); WHITE BLOOD COUNT 5.5 x10^3/uL (4.0-11.0)
[2021-09-09 09:58] LABS: PROTHROMBIN TIME PATIENT 12.4 SEC (11.7-14.0)
[2021-09-09] MEDS ORDERED: OMEP20TA63 PO (10:26)
[2021-09-09] MEDS ORDERED: OLAN5TAB67 PO (10:26)
[2021-09-09] MEDS ORDERED: CELE100C PO (10:26)
[2021-09-09] MEDS ORDERED: LOSA100T14 PO (10:26)
[2021-09-09] MEDS ORDERED: METF500T16 PO (10:26)
[2021-09-09 10:28] LABS: CALCIUM 8.3 mg/dL (8.5-10.1); CREATININE 0.9 mg/dL (0.7-1.3); GFR 84.7
[2021-09-09] MEDS ORDERED: IODIXANOL 320 MG/ML 100 ML VIAL. ONE (11:13)
[2021-09-09] MEDS ORDERED: LIDOCAINE 1% Multi-Dose 20 ML VIAL. ONE (11:13)
[2021-09-09] MEDS ORDERED: fentaNYL PF VIAL 100 MCG/2 ML VIAL ONE (11:19)
[2021-09-09] MEDS ORDERED: MIDAZOLAM HCL/PF 2 MG/2 ML VIAL. ONE ×2 (11:19→11:43)
[2021-09-09] MEDS ORDERED: IODIXANOL 320 MG/ML 100 ML VIAL. IART ONE (11:30)
[2021-09-09] MEDS ORDERED: fentaNYL PF VIAL 100 MCG/2 ML VIAL IV ONE (11:30)
[2021-09-09] MEDS ORDERED: LIDOCAINE 1% Multi-Dose 20 ML VIAL. INJ ONE (11:30)
[2021-09-09] MEDS ORDERED: MIDAZOLAM HCL/PF 2 MG/2 ML VIAL. IV ONE (11:30)
--- NOTE | 2021-09-09 12:20 | PDOC ---
MODERATE SEDATION ASSESSMENT RISKS/ALTERNATIVES Risks/Alternatives Risks and alternatives of this type of sedation and procedure discussed with: RISK/ALTERNATIVES: Patient H & P ON CHART H & P H & P on chart and reviewed for co-morbid conditions and appropriate labs. H&P ON CHART: Yes STATUS PREG STATUS ASSESSED: N/A MEDS/ALLERGIES REVIEWED Meds/Allergies Reviewed Medications and Allergies including time and route of recently administered narcotics and sedatives. MEDS/ALLERGIES REVIEWED: Yes ASA RATING ASA RATING: III AIRWAY ASSESSMENT Airway Assessment Airway patency, oral function limitations, presence of caps, crowns, dentures, partials, and ability to extend neck assessed. AIRWAY ASSESSMENT: Yes MALLAMPATI SCORE MALLAMPATI SCORE: II PRE-SEDATION ASSESSMENT PRE-SEDATION ASSESSMENT: Yes SAPPHIRE ALLISON MD Sep 09, 2021 12:20
[2021-09-09] MEDS ORDERED: IV 1/2 NORMAL SALINE 1,000 ML IV SCH (12:30)
--- NOTE | 2021-09-09 12:32 | CARD ---
MR#: [id number] Date of Study: 09/09/2021 Ordering Physician: SAPPHIRE MORENO, Referring Physician: SAPPHIRE MORENO, Tech: Kae Mon APPROVED REPORT Technologist: Kae Mon Nurse: Ariana Terrazas RN Procedure(s) performed: Right and left heart catheterization, selective coronary angiography and left ventriculography fl time: 4.4 min dose: 49 gycm2 contrast: 85 ml moderate sedation: 40 MIN INDICATION The indication(s) include : Refractory dyspnea on exertion. [facility] Clinical Frailty Scale [facility] Clinical Frailty Scale: Mildly Frail Heart Failure Heart Failure: No CASE TECHNIQUE IV conscious sedation was used throughout procedure with appropriate monitoring and was performed in the presence of a registered nurse who was an independent trained observer other than the physician p erforming the procedure. During this case, Fluoroscopy and low osmolar contrast were used for imaging . Specimen(s) Removed: No Estimated Blood loss: 20 cc's. PROCEDURE NARRATIVE After explaining the risk, benefits and alternative options, informed consent was obtained from patie nt. Patient was brought to the cardiac Hydro Station Operator and his right groin was prepped and draped in the us ual fashion. 20 cc of 2% lidocaine was infiltrated into the skin and subcutaneous tissues for local anesthesia. Arterial and venous accesses were obtained in the right common femoral artery and vein r espectively and 6 and 8 Mosotho sheaths inserted. A 7.5 Mosotho Lima-Donovan catheter was then advanced u nder fluoroscopy guidance and intracardiac pressures, oxygen saturations and cardiac output by thermo dilution method measured. 6 Mosotho JL4 6 Mosotho JR4 catheters were used to perform selective angiogr aphy of the left and right coronary arteries. 6 Mosotho pigtail catheter was used to perform left diana triculography. Patient tolerated the procedure well. Hemostasis was achieved using Angio-Seal and m anual compression. There were no immediate complications. FINDINGS A. RIGHT HEART CATHETERIZATION 1. Intracardiac pressures: Mean right atrial pressure 1 mmHg, right ventricular pressure 28/4 mmHg, pulmonary artery pressure 28/15 mmHg with a mean PA pressure of 20 mmHg, mean pulmonary capillary wed ge pressure of 7 mmHg. No pulmonary hypertension noted. 2. Oxygen saturations: Right atrium 61.1%, pulmonary artery 62.2%, femoral arterial sheath 96%. No evidence of intracardiac shunt. 3. Cardiac output by Donald method 3.9 L/min. B. LEFT HEART CATHETERIZATION 1. Hemodynamics: Left ventricular end-diastolic pressure 15 mmHg. No pullback gradient across the a ortic valve. 2. Left ventriculography: Normal left ventricle systolic function with ejection fraction estimated a t 65%. No significant mitral regurgitation seen. 3. Coronary angiography: a. The left main coronary artery arose from the left sinus of Valsalva, was very short, gave rise to the left anterior descending and left circumflex arteries and did not show any significant stenosis. b. The left anterior descending artery did not show any significant stenosis. c. The left circumflex artery was a large and dominant vessel that did not show any significant sten osis. d. The right coronary artery was a small and nondominant vessel that did not show any significant st enosis. Conclusion 1. No significant coronary artery disease 2. Normal left ventricle systolic function with ejection fraction estimated at 65% 3. No pulmonary hypertension 4. No evidence of intracardiac shunt Signed by : Sapphire Moreno, Electronically Approved : 09/09/2021 12:32:06
--- NOTE | 2021-09-09 15:26 | NUR ---
Discharge Note: HANK EVANS Discharge instructions and discharge home medications reviewed with Patient and ; a copy given. All questions have been answered and understanding verbalized. The following instructions and handouts were given: Groin site care and Moderate sedation. Discontinued lines and drains: Left AC IV dc'd, tip intact, and bandage applied. Patient discharged to home with via personal vehicle.
== END 2021-09-09 15:29 | disposition home or self-care (01) ==
LOC: CCL 09:00
PROVIDERS: ATTEND Internal Medicine Cardiovascular Disease
DX: R06.09 Other forms of dyspnea (principal); I10 Essential (primary) hypertension; E78.00 Pure hypercholesterolemia, unspecified; E11.9 Type 2 diabetes mellitus without complications; G47.30 Sleep apnea, unspecified; K21.9 Gastro-esophageal reflux disease without esophagitis; F41.9 Anxiety disorder, unspecified; F32.9 Major depressive disorder, single episode, unspecified; Z79.84 Long term (current) use of oral hypoglycemic drugs; Z79.899 Other long term (current) drug therapy; Z98.890 Other specified postprocedural states; Z88.0 Allergy status to penicillin; Z88.8 Allergy status to other drugs, medicaments and biological substances
CPT/HCPCS: 36415; 80048; 85027; 85610; 93460; 99152; 99153; C1760; C1769; C1773; C1894; J1644; J2250; J3010; J3490; Q9967; G0269

== ENCOUNTER → 2021-09-24 | Outpatient (CLI) | payer OTHER ==
[2021-09-09 15:05] VITALS: BP 123/74
[~2021-09-24] MED LIST changes: +CELE100C PO; +LOSA100T14 PO; +METF500T16 PO; +OLAN5TAB67 PO; +OMEP20TA63 PO
--- NOTE | 2021-09-24 15:16 | RAD ---
MR#: [id number] Date of Study: 09/24/2021 Ordering Physician: SAPPHIRE ALLISON, Referring Physician: SAPPHIRE ALLISON, Tech: Miya Das, ISADORA, RVT, RTR APPROVED REPORT Patient Location : OUT-PATIENT Indications CHRONIC VENOUS INSUFFICIENCY Findings Limited grayscale images the bilateral saphenofemoral junctions are grossly unremarkable. The right great saphenous vein measures approximately 4.5 mm in the left great saphenous vein measure s approximately 6 mm. No evidence of reflux is noted in the bilateral greater saphenous veins. The bilateral lesser saphenous veins also do not reveal any evidence of reflux Critical Notification Critical Value: No <Conclusion> 1. Negative for reflux the bilateral greater and lesser saphenous veins Signed by : Timi Carbajal, Electronically Approved : 09/24/2021 15:16:10
--- NOTE | 2021-09-25 12:52 | CARD ---
MR#: [id number] Date of Study: 09/24/2021 Ordering Physician: SAPPHIRE ALLISON, Referring Physician: SAPPHIRE ALLISON Tech: Chanda Hatfield [facility] APPROVED REPORT EXAM: Two-dimensional and M-mode echocardiogram with Doppler and color Doppler. Other Information Quality : AverageHR: 87bpm Rhythm : Atrial Fibrillation INDICATION Atrial Fibrillation RISK FACTORS Hypertension Obesity Hyperlipidemia 2D DIMENSIONS RVDd3.2 (2.9-3.5cm)Left Atrium(2D)4.3 (1.6-4.0cm) IVSd1.2 (0.7-1.1cm)Aortic Root(2D)2.8 (2.0-3.7cm) LVDd5.0 (3.9-5.9cm)LVOT Diameter2.2 (1.8-2.4cm) PWd1.4 (0.7-1.1cm)LVDs2.7 (2.5-4.0cm) FS (%) 46.7 %SV93.1 ml LVEF(%)77.8 (>50%) Aortic Valve AoV Peak Octaviano.136.6cm/sAoV VTI26.8cm AO Peak GR.7.5mmHgLVOT Peak Octaviano.111.3cm/s AO Mean GR.4mmHgAVA (VMAX)3.13cm2 Mitral Valve MV E Xuzsfcbd08.4cm/sMV E Peak Gr.8mmHg MV DECEL [id number] A Egwyppbv67.6cm/s MV E Mean Gr.4mmHgE/A Ratio0.9 Pulmonary Valve PV Peak Tvrfgoxt724.1cm/s LEFT VENTRICLE The left ventricle is normal size. There is mild concentric left ventricular hypertrophy. The left ve ntricular systolic function is normal and the ejection fraction is within normal range. EF 55% There is normal LV segmental wall motion. Tissue Doppler imaging reveals moderate left ventricular diastoli c dysfunction. RIGHT VENTRICLE The right ventricle is normal size. There is normal right ventricular wall thickness. The right ventr icular systolic function is normal. ATRIA The left atrium size is normal. The right atrium size is normal. The interatrial septum is intact wit h no evidence for an atrial septal defect or patent foramen ovale as noted on 2-D or Doppler imaging. AORTIC VALVE The aortic valve is normal in structure and function. Doppler and Color Flow revealed no significant aortic regurgitation. There is no significant aortic valvular stenosis. MITRAL VALVE The mitral valve is normal in structure and function. There is no evidence of mitral valve prolapse. There is no mitral valve stenosis. TRICUSPID VALVE The tricuspid valve is normal in structure and function. Doppler and Color Flow revealed no tricuspid valve regurgitation noted. There is no tricuspid valve stenosis. PULMONIC VALVE Doppler and Color Flow revealed no pulmonic valvular regurgitation. There is no pulmonic valvular maryam nosis. GREAT VESSELS The aortic root is normal in size. The ascending aorta is normal in size. The IVC is normal in size a nd collapses >50% with inspiration. PERICARDIAL EFFUSION There is no evidence of significant pericardial effusion. Critical Notification Critical Value: No <Conclusion> The left ventricular systolic function is normal and the ejection fraction is within normal range. EF 55% There is normal LV segmental wall motion. Signed by : Timi Carbajal, Electronically Approved : 09/25/2021 12:51:21
== END ==
LOC: ECHO 12:50
PROVIDERS: ATTEND Internal Medicine Cardiovascular Disease
DX: I51.7 Cardiomegaly (principal); I87.2 Venous insufficiency (chronic) (peripheral); I48.91 Unspecified atrial fibrillation
CPT/HCPCS: 93306; 93970; C8929